=== PATIENT | female | born 2005 | race Caucasian/White ===

== ENCOUNTER 2023-07-31 16:35 | Emergency (ER) | payer OTHER, SELFPAY ==
--- NOTE | ~2023-07-31 | XR_ITS ---
EXAM: XR wrist RT min 3V DATE: 07/31/2023 16:56 HISTORY: injury . COMPARISON: None available. FINDINGS: Normal mineralization. No fracture or dislocation. No lytic or blastic lesion. Joint space s are maintained. No erosion or periosteal change. Soft tissues within normal limits. IMPRESSION: No acute osseous finding in the right wrist. Reviewed, dictated and finalized at location K.
--- NOTE | 2023-07-31 16:48 | ED.UPPEXIN ---
HPI - Extremity Injury (Upper) General Chief Complaint: Extremity Injury, Upper Stated Complaint: WC -Right Wrist injury History of Present Illness HPI narrative: PATIENT PRESENTS WITH RIGHT WRIST PAIN. PATIENT REPORTS SHE WAS AT WORK AND SLIPPED AND THINKS SHE CAUGHT HERSELF WITH HER WRIST, PATIENT UNSURE OF HOW SHE INJURED HER WRIST . NO DEFORMITY NO SWELLING NO BRUISING AND NO OPEN AREAS NOTED NORMAL ROM NO NUMBNESS AND NO TINGLING. PATIENT REPORTS INCIDENT OCCURRED 15 MINUTES PRIOR TO ARRIVAL TO URGENT CARE. PATIENT HAS NOT ICED , ELEVATED OR TAKEN ANYTHING FOR PAIN AND DISCOMFORT. Related Data Allergies Allergy/AdvReac Type Severity Reaction Status Date / Time codeine Allergy Unknown Verified 07/31/23 16:49 morphine Allergy Unknown Verified 07/31/23 16:49 Review of Systems Review of Systems: CONSTITUTIONAL: DENIES FEVER, CHILLS, OR SWEATS. EYES: DENIES VISUAL CHANGES, REDNESS, OR DISCHARGE. ENT: DENIES RHINORRHEA, CONGESTION, SORE THROAT, OR OTALGIA. CARDIOVASCULAR: DENIES CHEST PAIN, PALPITATIONS, OR EDEMA. RESPIRATORY: DENIES COUGH OR DYSPNEA. GASTROINTESTINAL: DENIES ABDOMINAL PAIN, NAUSEA, VOMITING, OR DIARRHEA. GENITOURINARY: DENIES DYSURIA OR HEMATURIA. SKIN: DENIES RASH OR ITCHING. MUSCULOSKELETAL: DENIES BACK PAIN, JOINT PAIN, OR MYALGIA. NEUROLOGIC: DENIES HEADACHE, NUMBNESS, OR WEAKNESS. PSYCHIATRIC: DENIES ANXIETY OR DEPRESSION. PMFSH Comments AT TIME OF SIGNATURE, AGREE WITH NURSING PAST MEDICAL, SURGICAL, SOCIAL AND FAMILY HISTORY. THERE IS NO RELEVANT FAMILY HISTORY PERTINENT TO THE PRESENTING COMPLAINT Exam Narrative: GENERAL: WELL-APPEARING, WELL-NOURISHED, AND IN NO ACUTE DISTRESS. HEAD: NORMOCEPHALIC, ATRAUMATIC. EYES: PERRLA AND EOMI. ENT: NARES CLEAR, NO RHINORRHEA OR EPISTAXIS. MUCOUS MEMBRANES MOIST. NECK: SUPPLE. CHEST: CLEAR TO AUSCULTATION. NO RESPIRATORY DISTRESS. HEART: REGULAR RATE AND RHYTHM. NO MURMUR HEARD. NORMAL PERIPHERAL PULSES. ABDOMEN: SOFT, NONTENDER, NONDISTENDED, NORMAL ACTIVE BOWEL SOUNDS. EXTREMITIES: NORMAL RANGE OF MOTION. NO EDEMA. HAND EXAM - Skin intact, no laceration, no swelling, no erythema, normal digit cascade with flexion of fingers, median nerve, ulnar nerve, radial nerve is intact. Normal sensation of each side of each finger, can perform `ok? sign, `cross over finger test of index and middle fingers? and `thumbs up? sign, normal thumb opposition, no scissoring. good capillary refill and radial pulse. normal flexion and extension of fingers and wrist. normal supination at wrist. Normal forearm and elbow exam. SKIN: WARM, DRY, NO RASH. NEURO: NO FOCAL DEFICITS. ALERT AND ORIENTED X3. ЮЛИЯ COMA SCALE EYE OPENING: SPONTANEOUS 4 ЮЛИЯ COMA SCALE MOTOR: OBEYS COMMANDS 6 ЮЛИЯ COMA SCALE VERBAL: ORIENTED 5 ЮЛИЯ COMA SCALE TOTAL 15 Course Course Emergency Course: DISCUSSED WITH PATIENT, X-RAY FINDINGS AND THAT X-RAYS WERE NEGATIVE FOR FRACTURE OR DISLOCATIONS. X-RAYS CANNOT RULE OUT TENDON, LIGAMENT, OR SOFT TISSUE STRUCTURE INJURIES AND IF SYMPTOMS PERSIST OR WORSEN, FURTHER EVALUATION MAY BE WARRANTED FOR POTENTIAL IMAGING. ADVISED REST, ICE, COMPRESSION, AND ELEVATION. IF PRESCRIBED ANY MEDICATIONS, TAKE DIRECTED. IF PRESCRIBED MUSCLE RELAXERS, DO NOT DRINK ALCOHOL, DRIVE, OR OPERATE ANY HEAVY MACHINERY WHILE TAKING. INSTRUCTED ON WHEN TO F/U WITH PCP AND CRITICAL RED FLAGS S/S DISCUSSED TO WHEN TO RETURN TO THE [facility] OR GO TO THE EMERGENCY DEPARTMENT. PATIENT/FAMILY UNDERSTAND IMPORTANCE OF CLOSE OBSERVATION AND RETURNING OR GOING TO THE EMERGENCY ROOM IF ANY WORSENING CONDITION. . Level of Care: Express Care Visit MDM - Extremity Injury (Upper) Imaging Data Radiologist's impression: Normal mineralization. No fracture or dislocation. No lytic or blastic lesion. Joint spaces are maintained. No erosion or periosteal change. Soft tissues within normal limits. IMPRESSION: No acute osseous finding in the right wrist. Discharg
[2023-07-31 16:50] VITALS: BP 122/69; PULSE 87; RESP 16; TEMP 36.9; O2SAT 98
== END 2023-07-31 17:15 | disposition home or self-care (01) ==
PROVIDERS: Emergency Provider Nurse Practitioner Family; PCP Internal Medicine
DX: S63.501A Unspecified sprain of right wrist, initial encounter (principal); S66.911A Strain of unspecified muscle, fascia and tendon at wrist and hand level, right hand, initial encounter; W01.0XXA Fall on same level from slipping, tripping and stumbling without subsequent striking against object, initial encounter; Y99.0 Civilian activity done for income or pay
CPT/HCPCS: 73110; 99213; G0463

== ENCOUNTER 2023-08-18 12:51 | Outpatient (CLI) | payer OTHER, SELFPAY ==
[2023-08-18 13:26] LABS: Basophils Absolute Auto 0.1 K/mm3 (0.0-0.1); Basophils Percent Auto 1.2 % (0.2-1.2); Eosinophils Percent Auto 0.6 % (0-4.4); Hematocrit 41.5 % (37.0-47.0); Hemoglobin 13.7 g/dL (12.0-15.0); Lymphocytes Absolute Auto 1.44 K/mm3 (0.9-3.2); Lymphocytes Percent Auto 28.5 % (18.3-44.2); Mean Corpuscular Hemoglobin 32.4 pg (26-34); Mean Corpuscular Volume 98.1 fl (80-100); Mean Platelet Volume 9.8 fl (7.4-10.4); Monocytes Absolute Auto 0.5 K/mm3 (0.1-0.6); Monocytes Percent Auto 10.7 % (2.6-8.5); Platelet Count Result 249 k/mm3 (150-375); Red Blood Count 4.23 M/mm3 (4.2-5.4); Red Cell Distribution Width 12.4 % (11.5-14.5); White Blood Count 5.1 K/mm3 (4.5-10.0)
[2023-08-18 13:48] LABS: Anion Gap 6 mmol/L (4-12); Blood Urea Nitrogen 12 mg/dL (7-17); Calcium 9.3 mg/dL (8.4-10.2); Carbon Dioxide 27 mmol/L (22-30); Chloride 106 mmol/L (98-107); Estimated Glomerular Filt Rate > 60; Glucose 60 mg/dL (65-110); Magnesium 1.8 mg/dL (1.6-2.3); Potassium 4.2 mmol/L (3.4-5.0); Sodium 139 mmol/L (137-145)
[2023-08-18 13:50] LABS: Troponin I < 0.012 ng/mL (0.000-0.034)
[2023-08-18 13:56] LABS: D Dimer < 0.27 ug/mL (<0.48)
[2023-08-18 14:09] LABS: Thyroid Stimulating Hormone 0.763 uIU/mL (0.465-4.680)
== END 2023-08-18 12:52 | disposition home or self-care (01) ==
LOC: ANHLAB 12:55
PROVIDERS: PCP Internal Medicine; Visit Provider Internal Medicine
DX: R07.9 Chest pain, unspecified (principal)
CPT/HCPCS: 36415; 80048; 83735; 84443; 84484; 85025; 85380

== ENCOUNTER 2023-09-30 09:07 | Outpatient (CLI) | payer OTHER, SELFPAY ==
[2023-09-30 10:10] LABS: CRP < 0.5 mg/dL (<1.0)
[2023-09-30 10:21] LABS: Rheumatoid Factor < 12.0 IU/ML (<12)
[2023-09-30 10:38] LABS: Free T4 Free Thyroxine 0.99 ng/mL (0.78-2.19)
[2023-09-30 10:40] LABS: Cortisol Random 9.33 ug/dL
[2023-09-30 11:12] LABS: Erythrocyte Sedimentation Rate 17 mm/hr (0-20)
[2023-10-03 10:58] LABS: ANA Pattern Nuclear, Homogeneous; Anti Nuclear Antibody Pattern Nuclear, Speckled
[2023-10-03 13:03] LABS: Thyroid Peroxidase Antibodies <1 IU/mL (<9)
[2023-10-07 13:09] LABS: Adrenocorticotropic Hormone 7 pg/mL (6-50)
[2023-10-08 01:54] LABS: Triiodothyronine T3 Free 3.4 pg/mL (3.0-4.7)
[2023-10-10 09:15] LABS: Chromogranin A 90 ng/mL
== END 2023-09-30 09:08 | disposition home or self-care (01) ==
LOC: ANHLAB 09:09
PROVIDERS: PCP Internal Medicine; Visit Provider Internal Medicine Endocrinology, Diabetes & Metabolism
DX: E16.2 Hypoglycemia, unspecified (principal); E34.9 Endocrine disorder, unspecified; H04.129 Dry eye syndrome of unspecified lacrimal gland; R94.7 Abnormal results of other endocrine function studies
CPT/HCPCS: 36415; 82024; 82533; 82653; 84439; 84443; 84481; 85652; 86038; 86039; 86140; 86316; 86376; 86430

== ENCOUNTER 2023-10-01 09:31 | Outpatient (NON) | payer OTHER, SELFPAY ==
[2023-10-08 21:49] LABS: Pancreatic Elastase, Stool 443 mcg/g
== END 2023-10-01 09:32 | disposition home or self-care (01) ==
PROVIDERS: PCP Internal Medicine; Visit Provider Internal Medicine Endocrinology, Diabetes & Metabolism
DX: E16.2 Hypoglycemia, unspecified (principal); E34.9 Endocrine disorder, unspecified; H04.129 Dry eye syndrome of unspecified lacrimal gland; R94.7 Abnormal results of other endocrine function studies
CPT/HCPCS: 82653

== ENCOUNTER 2023-10-03 15:00 | Outpatient (CLI) | payer OTHER, SELFPAY ==
--- NOTE | ~2023-10-03 | MR_ITS ---
EXAMINATION: MR brain/brain stem wo/w con DATE: 10/03/2023 15:45 INDICATION: Other signs and symptoms involving general sensation. Chronic generalized headaches and s eizures. TECHNIQUE: Magnetic resonance imaging (MRI) of the brain and brainstem was performed without and with 9 mL Multihance intravenous contrast. Sequences included sagittal and axial T1-weighted SE, axial di ffusion-weighted FS SE, axial T2*-weighted GRE, axial T2-weighted FLAIR Propeller, axial T2-weighted Propeller, coronal T2-weighted FLAIR, and coronal T1-weighted 3D FSPGR. Postcontrast axial, sagittal and coronal T1-weighted SE was obtained. Apparent diffusion coefficient (ADC) maps were created. . COMPARISON: None. FINDINGS: There are no areas of restricted diffusion to suggest acute infarction. No intracranial hemorrhage or abnormal intracranial mass lesion. There are no intraparenchymal signal abnormalities seen on the ot her pulse sequences. Symmetric normal appearing hippocampi. No merida matter heterotopias or other neur onal migrational abnormalities. The ventricles are symmetric and normal in size. There are no abnorma l extra-axial fluid collections. Flow voids are seen in the cerebral arteries on the T2-weighted sequ ences consistent with their expected patency. Visualized orbits and soft tissues are unremarkable. Th ere are no areas of abnormal enhancement on the post contrast images. IMPRESSION: 1. Normal brain MR Reviewed, dictated and finalized at location A. IMPRESSION: 1. Normal brain MR
== END 2023-10-03 15:01 ==
DX: R44.8 Other symptoms and signs involving general sensations and perceptions (principal)
CPT/HCPCS: 70553; A9577

== ENCOUNTER 2024-04-12 06:34 | Outpatient (CLI) | payer OTHER, SELFPAY ==
--- OUTSIDE RECORDS SUMMARY | 2024-04-12 06:37 | XMS_ITS | Referral Summary ---
Author Organization [facility] Address [address] [place] [address] Care Team Providers Care Burlap Worker Name Role Phone Odilia Cha MD Unavailable [phone] Keila Holland MD Primary Care Provider [phone] Anabella Pfeiffer OD Unavailable Encounters Date Type Department Care Team Description 01/26/2024 6:30 PM PLANNING ASSOCIATE Office Visit [facility] Convenient Care at [address] [address] Heidi Acosta NP Acute nasopharyngitis (Primary Dx); Acute suppurative otitis media of right ear without spontaneous rupture of tympanic membrane, recurrence not specified from Last 3 Months Allergies Active Allergy Reactions Criticality Noted Date Comments Alcohol Anaphylaxis High 01/26/2024 Codeine Unknown,Other (See comments) High 05/24/2013 Mom and sib have had severe cardiac reaction - patient has never been exposed Cardiac affects Dairy - All Forms And Ingredients Anaphylaxis High 01/26/2024 Morphine Unknown 05/08/2014 Mom and sib have had severe cardiac reaction - patient never exposed Pork/Porcine Containing Products Hives Medium 01/26/2024 Shellfish Containing Products Chest tightness,Dizziness Medium 01/26/2024 Medications naproxen (NAPROSYN) 500 mg tablet 1 tablet (500 mg total) 2 (two) times a day as needed 0 9 Active B2-magnesium cit,oxid-feverf ew 200-180-50 mg tablet Take by mouth daily Active glucagon 1 mg injection INJECT 1 MG IN THE MUSCLE ONE TIME FOR SEVERE HYPOGLYCEMIA THEN CALL 911 4 Active Gvoke PFS 1-Pack Syringe 1 mg/0.2 mL syringe 4 Active ondansetron (ZOFRAN) 4 mg tablet Take by mouth every 8 (eight) hours as needed 4 Active FreeStyle Caitie 3 Sensor device USE DIRECTED FOR HYPOGLYCEMIA [address] (PROTONIX) 40 mg EC tablet Take 1 tablet (40 mg total) by mouth daily 4 Active Active Problems Problem Noted Date Diagnosed Date Post concussive syndrome 09/24/2022 Overview (09/24/2022): Hx of 2 concussions over the past year (summer), worsening of migraines and seizures after concussions. Vision blurriness, darkening, eye pain all worsened after concussions. Symptoms improved for a few months with again worsening of visual symptoms Apr-June. Assessment & Plan (09/24/2022 11:55 AM CDT): Exam very reassuring, no structural/functional concerns demonstrated on exam or imaging -Migraine precautions -F41 glasses information -Can consider repeat MRI -Declined speaking to a sleep specialist -Follow up in 4-6 mo Myalgia 10/11/2018 Social History Tobacco Use Types Packs/Day Years Used Date Smoking Tobacco: Never Smokeless Tobacco: Never Tobacco Cessation:Counseling Given: Not Answered Comments Unknown Sex and Gender Information Value Date Recorded Sex Assigned at Not on file Legal Sex Female 1:56 PM CDT Gender Identity Not on file Sexual Orientation Not on file Last Filed Vital Signs Vital Sign Reading Time Taken Comments Blood Pressure 118/82 01/26/2024 6:37 PM PLANNING ASSOCIATE Pulse 84 01/26/2024 7:09 PM PLANNING ASSOCIATE Temperature 36.6 ??C (97.9 ??F) 01/26/2024 6:37 PM CS T Respiratory Rate 20 01/26/2024 6:37 PM PLANNING ASSOCIATE Oxygen Saturation 99% 01/26/2024 7:09 PM PLANNING ASSOCIATE Inhaled Oxygen Concentration - - Weight 45.5 kg (100 lb 6.4 oz) 01/26/2024 6:37 P M PLANNING ASSOCIATE Height 167.6 cm (5' 5.98 ) 01/26/2024 6:37 PM CS T Body Mass Index 16.21 01/26/2024 6:37 PM PLANNING ASSOCIATE Plan of Treatment Not on file Procedures Procedure Name Priority Date/Time Associated Diagnosis Comments POC INFLUENZA A/B, COVID-19 ANTIGEN Routine 01/26/2024 7:09 PM PLANNING ASSOCIATE Acute nasopharyngitis from Last 3 Months Results * POC Influenza A/B, COVID-19 antigen (01/26/2024 7:09 PM PLANNING ASSOCIATE) Influenza A Ag, POC Negative Negative [facility] Influenza B Ag, POC Negative Negative [facility] COVID-19 Ag POC Presumptive Negative Presumptive Negative, Invalid [facility] Nasal 01/26/2024 7:09 PM PLANNING ASSOCIATE us Heidi Acosta NP POINT OF CARE TEST ORDERABLES F inal Result [facility] [address] [place] [address], [facility] from Last 3 Months Insurance [facility] Care Teams Burlap Worker Relationship Specialty Start Date End Date Keila Holland MD [address] [place] [address] PCP - General Internal Medicine 09/24/22 Odilia Cha MD Pediatrics 05/15/19 Anabella Pfeiffer OD [address] [place] [address] Referring Physician Optometry 09/24/22
--- OUTSIDE RECORDS SUMMARY | 2024-04-12 06:37 | XMS_ITS ---
Author Organization [facility] Address [address] [place] [address] Care Team Providers Care Innovations Paraprofessional Name Role Phone Leah Croft Primary Care Provider REASON FOR VISIT Genetics appointment Encounters Encounter Location Date Provider Diagnosis [facility] - Leah Croft [address] [place] [address] 03/29/2024 Leah Croft Plan Of Treatment Next Appt Details Provider Name:Leahsharifa Croft, 03:30:00 PM, [address], [place], [address], Progress Notes * Guillermina TYLERDOB:[birth year] (18 yo F)Acc No.[id number]:03/29/2024 Patient:?Guillermina TYLER :2005???Age:18 Y???Sex:Female Address:[address], [address], [place] [address] * true * Date:? Generated for Carl hoffman/Wilbert/eTransmitting on:?04/12/2024 06:37 AM JUKEBOX COIN COLLECTOR
--- OUTSIDE RECORDS SUMMARY | 2024-04-12 06:37 | XMS_ITS | Clinical Summary ---
Author Organization [facility] Address [address] [place] [address] Phone Care Team Providers Care Vb Net Programmer Name Role Phone Keila Holland MD Primary Care Provider [phone] Jenniffer Christian APRN, CIGAR PACKING EXAMINER Unavailable Allergies Active Allergy Reactions Criticality Noted Date Comments Codeine Anaphylaxis,Other (see Comments),Unknown High 05/24/2013 Sister had cardiac arrest Mom and sib have had severe cardiac reaction - patient has never been exposed Cardiac affects Lactase-Lactobacillus Unknown 10/27/2023 Morphine Anaphylaxis,Other (see Comments),Unknown 05/08/2014 Sister had cardiac arrest Mom and sib have had severe cardiac reaction - patient never exposed Pork-Derived Products Unknown 10/27/2023 Medications acarbose (PRECOSE) 50 MG Tablet Take 50 mg by mouth 3 times daily. 4 Active Continuous Glucose Sensor (FreeStyle Caitie 3 Sensor) [facility] FOR HYPOGLYCEMIA 4 Active FEVERFEW PO Take by mouth daily. Active Gvoke PFS 1 MG/0.2ML Solution Prefilled Syringe 4 Active ondansetron (Zofran) 4 MG Tablet Take 4 mg by mouth every 8 hours as needed. Active simethicone (Gas-X Extra Strength) 125 MG Chewable Tablet Take 80 mg by mouth every 6 hours as needed. Active Active Problems No known active problems Immunizations Immunization Administration Dates Next Due TDAP Vaccine 12/02/2019 Social History Tobacco Use Types Packs/Day Years Used Date Smoking Tobacco: Never Smokeless Tobacco: Never Tobacco Cessation:Counseling Given: Not Answered Alcohol Use Standard Drinks/Week Comments Never 0 (1 standard drink = 0.6 oz pur e alcohol) AUDIT-C Answer Date Recorded Frequency of Alcohol Consumption Never 06/03/2018 Average Number of Drinks Not on file 019 Frequency of Binge Drinking Not on file 05/13 Comments No Sex and Gender Information Value Date Recorded Sex Assigned at Not on file Legal Sex Female 10:13 PM CDT Gender Identity Not on file Sexual Orientation Not on file Last Filed Vital Signs Vital Sign Reading Time Taken Comments Blood Pressure 100/80 10/27/2023 8:48 AM CDT Pulse 84 10/27/2023 8:48 AM CDT Temperature 36.3 ??C (97.3 ??F) 10/27/2023 8:48 AM CD T Respiratory Rate 14 10/27/2023 8:48 AM CDT Oxygen Saturation 99% 10/27/2023 8:48 AM CDT Inhaled Oxygen Concentration - - Weight 45.2 kg (99 lb 11.2 oz) 10/27/2023 8:48 A M CDT Height 166.4 cm (5' 5.5 ) 10/27/2023 8:48 AM CDT Body Mass Index 16.34 10/27/2023 8:48 AM CDT Plan of Treatment Health Maintenance Due Date Last Done Comments Hepatitis C Virus (HCV) Screening 2003 Human Papillomavirus (HPV) Immunization (1 - 3-dose series) 2018 Meningococcal B Immunization (1 of 2 - Standard) 2019 Influenza Immunization (#1) 2023 SARS-COV-2 Immunization ( season) 2023 03/09/2023, 03/03/2021, 07/01/2020, Additional history exists Td Immunization Every 10 Years (Adults With 1 Tdap) 12/01/2029 12/02/2019, 06/08/2016 Respiratory Syncytial Virus (RSV) Immunization (Adult) (1 - 1-dose 75+ series) 2078 Hepatitis B Immunization Completed 011, 09/29/2010, 07/28/2009 Measles Mumps Rubella (MMR) Immunization Discontinued 08/14/2013, 05/01/2012, 01/20/2012 DTaP/Tdap/Td Immunization Discontinued 2019, 06/08/2016, 06/02/2009, Additional history exists Varicella Immunization Discontinued 03/21/2020, 2017 Meningococcal Immunization (ACWY) Completed 04/25/2020 Hepatitis A Immunization Discontinued 03/21/2023 Pneumococcal Immunization Combined Aged Out No longer eligible based on patient's age to complete this topic Rotavirus Immunization Aged Out No lo nger eligible based on patient's age to complete this topic Insurance NA SOI AENA SOI Care Teams Vb Net Programmer Relationship Specialty Start Date End Date Keila Holalnd MD [address] [place] [address] PCP - General Internal Medicine 09/27/23 Jenniffer Christian APRN, CIGAR PACKING EXAMINER [address] [place] [address] Nurse Practitioner Advanced Practice Nurse 10/27/23
--- OUTSIDE RECORDS SUMMARY | 2024-04-12 06:37 | XMS_ITS | Clinical Summary ---
Author Organization [facility] Address [address] [place] [address] Care Team Providers Care Correspondence Review Clerk Name Role Phone Odilia Cha MD Unavailable [phone] Keila Holland MD Primary Care Provider Anabella Pfeiffer OD Unavailable Allergies Active Allergy Reactions Criticality Noted [...] of 2 concussions over the past year (summer of ), worsening of migraines and seizures after concussions. [...] -Follow up in 4-6 mo Myalgia 10/11/2018 Encounters Date Type Department Care Team Description 01/26/2024 6:30 PM SUPERINTENDENT STATIONS Office Visit [facility] Medical Group Convenient Care at [address] [address] Heidi Acosta NP Acute nasopharyngitis (Primary Dx); Acute suppurative otitis media of right ear without spontaneous rupture of tympanic membrane, recurrence not specified from Last 3 Months Surgical History Surgery Date Site/Laterality Comments NO PAST SURGERIES Medical History Medical History Date Comments Migraines Pseudoseizures Family History Medical History Relation Name Comments Henoch-Schonlein purpura Brother Migraines Father Rheum arthritis Maternal Grandmother Relation Name Status Comments Brother Father Father's Brother MS Other Father's Sister MS Other Maternal Grandmother Social History Tobacco Use Types Packs/Day Years Used Date Smoking Tobacco: Never Smokeless Tobacco: Never Tobacco Cessation:Counseling Given: Not Answered Comments Unknown Sex and Gender Information Value Date Recorded Sex Assigned at Not on file Legal Sex Female 1:56 PM CDT Gender Identity Not on file Sexual Orientation Not on file Obstetrics History Last Filed Vital Signs Vital Sign Reading Time Taken Comments Blood Pressure 118/82 01/26/2024 6:37 PM SUPERINTENDENT STATIONS Pulse 84 01/26/2024 7:09 PM SUPERINTENDENT STATIONS Temperature 36.6 ??C (97.9 ??F) 01/26/2024 6:37 PM CS T Respiratory Rate 20 01/26/2024 6:37 PM SUPERINTENDENT STATIONS Oxygen Saturation 99% 01/26/2024 7:09 PM SUPERINTENDENT STATIONS Inhaled Oxygen Concentration - - Weight 45.5 kg (100 lb 6.4 oz) 01/26/2024 6:37 P M SUPERINTENDENT STATIONS Height 167.6 cm (5' 5.98 ) 01/26/2024 6:37 PM CS T Body Mass Index 16.21 01/26/2024 6:37 PM SUPERINTENDENT STATIONS Plan of Treatment Health Maintenance Due Date Last Done Comments Depression Screening 2003 Hepatitis C Screening 2003 HPV Vaccines (1 - 3-dose series) 2018 Meningococcal B Vaccine (1 of 2 - Patient Seeks Protection) 2019 10/16/2014 Regular Well Visit/Exam 18-64 2021 Covid-19 Vaccine ( - season) 2023 03/03/2021, 07/01/2020, 06/09/2020 Influenza Vaccine (#1) 2023 DTaP/Tdap/Td Vaccine (7 - Td or Tdap) 12/01/2029 12/02/2019, 06/08/2016, 06/02/2009, Additional history exists Varicella Vaccines Completed 03/21/2020, 06/15/2017 Meningococcal Vaccine Completed 04/25/2020 Pneumococcal vaccine <65 Aged Out No longer eligible based on patient's age to complete this topic Procedures Procedure Name Priority Date/Time Associated Diagnosis Comments POC INFLUENZA A/B, COVID-19 ANTIGEN Routine 01/26/2024 7:09 PM SUPERINTENDENT STATIONS Acute nasopharyngitis from Last 3 Months Results * POC Influenza A/B, COVID-19 antigen (01/26/2024 7:09 PM SUPERINTENDENT STATIONS) Influenza A Ag, POC Negative Negative [facility] Influenza B Ag, POC Negative Negative [facility] COVID-19 Ag POC Presumptive Negative Presumptive Negative, Invalid [facility] Nasal 01/26/2024 7:09 PM SUPERINTENDENT STATIONS Heidi Acosta NP POINT OF CARE TEST ORDERABLES F inal Result [facility] [address] [place] [address], [facility] from Last 3 Months Insurance [facility] [facility] Care Teams Correspondence Review Clerk Relationship Specialty Start Date End Date Keila Holland MD [address] [facility] [place] [address] PCP - General Internal Medicine 09/24/22 Odilia Cha MD Pediatrics 05/15/19 Anabella Pfeiffer OD [address] [place] [address] Referring Physician Optometry 09/24/22
--- OUTSIDE RECORDS SUMMARY | 2024-04-12 06:37 | XMS_ITS | Encounter Summary ---
Author Organization [facility] Address [address] [place] [address] Care Team Providers Care Entry Level Electrical Engineer Name Role Phone Provider, No Pcp Primary Care Provider Unavailab Jefry Cantor MD Unavailable Encounter Details Date Type Department Care Team (Latest Contact Info) Description 04/11/2024 9:09 AM LACING CUTTER - 04/11/2024 11:59 PM LACING CUTTER Hospital Encounter [facility] MATERNAL/ EVALUATION UNIT [address] [place] [address] Kg Villa MD [address] [facility] [address] [place] [address] Discharge Disposition: Home or Self Care Social History Tobacco Use Types Packs/Day Years Used Date Smoking Tobacco: Never Smokeless Tobacco: Never Alcohol Use Standard Drinks/Week Comments Not Currently 0 (1 standard drink = 0.6 oz pur e alcohol) AUDIT-C Answer Date Recorded Q1: How often do you have a drink containing alcohol? Never 03/28/2024 Q2: How many drinks containi ng alcohol do you have on a typical day when you are drinking? Patient does not drink Q3: How often do you have si x or more drinks on one occasion? Never 03/28/2024 Overall Financial Resource Strain (CARDIA) Answe r Date Recorded How hard is it for you to pa y for the very basics like food, housing, medical care, and heating? Not hard at all 03/28/2024 [facility] [place] of Occupat ional Health - Occupational Stress Questionnaire Answer Date Recorded Do you feel stress - tense, restless, nervous, or anxious, or unable to sleep at night because your mind is troubled all the time - these days? Not at all 03/28/2024 Hunger Vital Sign Answer Date Recorded Within the past 12 months, y ou worried that your food would run out before you got the money to buy more. Never true 03/28/19 25 Within the past 12 months, t he food you bought just didn't last and you didn't have money to get more. Never true 03/28/2024 PRAPARE - Transportation Answer Date Re corded In the past 12 months, has l ack of transportation kept you from medical appointments or from getting medications? No 03/14 In the past 12 months, has l ack of transportation kept you from meetings, work, or from getting things needed for daily living? No 03/28/2024 Housing Stability Vital Sign Answer Tuan e Recorded In the last 12 months, was t here a time when you were not able to pay the mortgage or rent on time? No 03/28/2024 In the past 12 months, how m any times have you moved where you were living? 1 03/28/2024 At any time in the past 12 m [facility], were you homeless or living in a intermediate (including now)? No 03/28/2024 Sex and Gender Information Value Date Recorded Sex Assigned at Not on file Gender Identity Not on file Sexual Orientation Not on file documented as of this encounter Last Filed Vital Signs Vital Sign Reading Time Taken Comments Blood Pressure 116/81 04/11/2024 9:14 AM LACING CUTTER Pulse 84 04/11/2024 9:14 AM LACING CUTTER Temperature - - Respiratory Rate 16 04/11/2024 9:14 AM LACING CUTTER Oxygen Saturation - - Inhaled Oxygen Concentration - - Weight 47.4 kg (104 lb 6.4 oz) 04/11/2024 9:14 A M LACING CUTTER Height - - Body Mass Index 17.11 03/28/2024 7:45 AM LACING CUTTER documented in this encounter Functional Status Functional Status Response Date of Assess ment Is person deaf or have serious hearing difficult y? No 03/28/2024 Is person blind or have serious difficulty seein g? No 03/28/2024 Does person have serious dif ficulty walking/climbing stairs? No 03/28/2024 Does person have difficulty dressing/bathing? No 03/28/2024 Does person have difficulty doing errands alone? No 03/28/2024 Cognitive Status Response Date of Assessm ent Does person have difficulty concentrating/remembering/making decisions? No 03/28/2024 documented as of this encounter Medications at Time of Discharge Medication Sig Dispensed Refills Start Date End Date acetaminophen (Tylenol) 500 MG tablet Take 1 (one) tablet by mouth every 4 hours as needed for Fever or Pain Maximum allowable Acetaminophen amount = 4 Grams (4000 mg) / 24 hours. 30 tablet 03/28/2024 diphenhydrAMINE (Benadryl) 50 MG capsule Take 1 (one) capsule by mouth every 4 hours as needed for Itching Take 1 hr prior to the scan 1 capsule 11/07/2023 ibuprofen (Motrin) 600 MG tablet Take 1 (one) tablet by mouth every 6 hours as needed for Pain 30 tablet 03/28/2024 Nutritional Supplement LIQD Take 1 container by mouth 2 times daily Vegan or Milk Free Supplement w/o artifical sweeteners Examples: Gela Alexander (1.4 Jude - Standard), DANA Ambrocio, Jethro, Vinicius 99 11/23/2023 octreotide (SandoSTATIN) 50 MCG/ML injection INJECT 50MCG (1ML) SUBCUTANEOUSLY TWICE DAILY BEFORE MEALS 11/15/2023 oxyCODONE, immediate release, (Roxicodone) 5 MG tabletIndications:Pos t-operative state Take 1 (one) tablet by mouth every 6 hours as needed for Pain 12 tablet 03/28/2024 polyethylene glycol 3350 (Miralax) 17 GM/SCOOP powder Take 17 (seventeen) g by mouth once daily 238 g 03/28/2024 documented as of this encounter Plan of Treatment Upcoming Encounters Date Type Department Care Team (Latest Contact Info) Description 04/23/2024 8:00 AM LACING CUTTER Appointment [facility] Pediatrics - Genetics [address] [place] [address] Aj Keen MD [address] [place] [address] 05/30/2024 12:45 PM CDT Hospital Encounter [facility] ENDOSCOPY [address] [place] [phone] Sydnee Collins MD [address] [place] [phone] Surgery General 05/30/2024 12:45 PM CDT - 05/30/2024 1:15 PM CDT Surgery [facility] ENDOSCOPY [address] [place] [phone] Sydnee Collins MD [facility] [place] [address] EGD w/ azalia 10/12/2024 1:00 PM CDT Appointment [facility] MATERNAL/ EVALUATION UNIT [address] [place] [address] Kg Villa MD [address] [facility] [address] [place] [address] Scheduled Procedures Name Priority Associated Diagnoses Date/Ti me ESOPHAGOGASTRODUODENOSCOPY ( EGD) DIAGNOSTIC Erosive gastritis 05/30/2024 12:45 PM CDT documented as of this encounter Visit Diagnoses Not on filedocumented in this encounter Care Teams Entry Level Electrical Engineer Relationship Specialty Start Date End Date Provider, No Pcp PCP - General 03/27/24 Jefry Martinez MD [address] [place] [address] 03/27/24 documented as of this encounter
--- OUTSIDE RECORDS SUMMARY | 2024-04-12 06:37 | XMS_ITS | Encounter Summary ---
Author Organization [facility] Address [address] [facility] [place] [address] Care Team Providers Care Woods Rider Name Role Phone Provider, No Pcp Primary Care Provider Unavailab Jefry Cantor MD Unavailable Encounter Details Date Type Department Care Team (Latest Contact Info) Description 04/11/2024 Travel Social History Tobacco Use Types Packs/Day Years [...] and heating? Not hard at all 03/28/2024 [facility] [place] of Occupat ional Health - Occupational Stress [...] any time in the past 12 m [facility], were you homeless or living in a correction (including now)? No 03/28/2024 Sex and Gender Information Value Date Recorded Sex Assigned at Not on file Gender Identity Not on file Sexual Orientation Not on file documented as of this encounter Functional Status Functional Status Response [...] No 03/28/2024 documented as of this encounter Plan of Treatment Upcoming Encounters Date Type Department Care Team (Latest Contact Info) Description 04/23/2024 8:00 AM SKIP HOIST ENGINEER Appointment [facility] Pediatrics - Genetics [address] [place] [address] Aj Keen MD [address] [place] [address] 05/30/2024 12:45 PM CDT Hospital Encounter [facility] ENDOSCOPY [address] [place] [phone] Sydnee Collins MD [address] [place] [address] Surgery General 05/30/2024 12:45 PM CDT - 05/30/2024 1:15 PM CDT Surgery [facility] ENDOSCOPY [address] [place] [phone] Sydnee Collins MD [address] [place] [phone] EGD w/ azalia 10/12/2024 1:00 PM CDT Appointment [facility] MATERNAL/ EVALUATION UNIT [address] [facility] [address] [place] [address] Kg Villa MD [address] [facility] [address] [place] [address] Scheduled Procedures Name Priority Associated Diagnoses Date/Ti me ESOPHAGOGASTRODUODENOSCOPY ( EGD) DIAGNOSTIC Erosive gastritis 05/30/2024 12:45 PM CDT documented as of this encounter Visit Diagnoses Not on filedocumented in this encounter Care Teams Woods Rider Relationship Specialty Start Date End Date Provider, No Pcp PCP - General 03/27/24 Jefry Martinez MD [address] [place] [address] 03/27/24 documented as of this encounter
--- OUTSIDE RECORDS SUMMARY | 2024-04-12 06:38 | XMS_ITS | Encounter Summary ---
Author Organization [facility] Address [address] [facility] [place] [address] Care Team Providers Care Living Skills Advisor Name Role Phone Provider, No Pcp Primary Care Provider Unavailab Jefry Cantor MD Unavailable Encounter Details Date Type Department Care Team (Late st Contact Info) Description 03/28/2024 4:55 AM [facility] Hospital Encounter [facility] 5E ANTEPARTUM/MOTHER BABY [address] [place] [address] Zakia Gonzalez MD [address] [facility] [address] [place] [id number] Gynecology Social History Tobacco Use Types Packs/Day Years Used Date Smoking Tobacco: Never Smokeless Tobacco: Never Alcohol Use Standard Drinks/Week Comments Never 0 [...] and heating? Not hard at all 03/28/2024 [facility] [place] of Occupat ional Health - Occupational Stress [...] any time in the past 12 m [facility], were you homeless or living in a custodial (including now)? No 03/28/2024 Sex and Gender [...] (Latest Contact Info) Description 04/23/2024 8:00 AM MOBILE THERAPIST Appointment [facility] Pediatrics - Genetics [address] [place] [address] Aj Keen MD [address] [place] [address] 05/30/2024 12:45 PM CDT Hospital Encounter [facility] ENDOSCOPY [address] [place] [phone] Sydnee Collins MD [address] [place] [address] Surgery General 05/30/2024 12:45 PM CDT - 05/30/2024 1:15 PM CDT Surgery [facility] ENDOSCOPY [address] [place] [phone] Sydnee Collins MD [facility] [place] [phone] EGD w/ azalia 10/12/2024 1:00 PM CDT Appointment [facility] MATERNAL/ EVALUATION UNIT [address] [place] [address] Kg Villa MD [address] [place] [address] Scheduled Procedures Name Priority Associated Diagnoses Date/Ti me ESOPHAGOGASTRODUODENOSCOPY ( EGD) DIAGNOSTIC Erosive gastritis 05/30/2024 12:45 PM CDT documented as of this encounter Visit Diagnoses Diagnosis Cyst of ovary, unspecified laterality- Primary Cyst of ovary, unspecified laterality Erosive gastritis Other specified gastritis without mention of hemorrhage documented in this encounter Care Teams Living Skills Advisor Relationship Specialty Start Date End Date Provider, No Pcp PCP - General 03/27/24 Jefry Martinez MD [address] [place] [address] 03/27/24 documented as of this encounter
--- OUTSIDE RECORDS SUMMARY | 2024-04-12 06:38 | XMS_ITS ---
Author Organization [facility] Address [address] [place] [address] Care Team Providers Care Lithograph Printer Name Role Phone Lang Leah Primary Care Provider REASON FOR VISIT Medical records Encounters Encounter Location Date Provider Diagnosis [facility] - Leah Croft [address] [place] [address] 03/22/2024 Leah Croft Plan Of Treatment Next Appt Details Provider Name:Leah Croft, 03:30:00 PM, [address], [place], [address], Progress Notes * JAYSON SherijuaniDOB:[birth year] (18 yo F)Acc No.[id number]:03/22/2024 Patient:?Guillermina TYLER :2005???Age:18 Y???Sex:Female Address:[address], [address], [place] [address] * true * Date:? Generated for Carl hoffman/Wilbert/eTransmitting on:?04/12/2024 06:38 AM SOLAR INSTALLER
--- OUTSIDE RECORDS SUMMARY | 2024-04-12 06:38 | XMS_ITS | Referral Summary ---
Author Organization [facility] Address [address] [place] [address] Care Team Providers Care Development Officer Name Role Phone Provider, No Pcp Primary Care Provider Unavailab Jefry Cantor MD Unavailable Source Comments [facility],non-owned Affiliates and Associated Physician Practices is amultiple site organization consisting of ambulatory clinics and hospital sitesin [place], [place], [place] and [place]. This disclosure is being madepursuant to the Care Everywhere program and may not contain all information available regarding this patient. Last updated 17.[facility] Encounters Date Type Department Care Team Description 04/11/2024 Travel 04/11/2024 9:09 AM ENGINEERING PSYCHOLOGIST - 04/11/2024 11:59 PM ENGINEERING PSYCHOLOGIST Hospital Encounter [facility] MATERNAL/ EVALUATION UNIT [address] [place] [address] Kg Villa MD Discharge Disposition: Home or Self Care 03/30/2024 Telephone [facility] MATERNAL/ EVALUATION UNIT [address] [place] [address] Scarlett Batista Future Appointment 03/28/2024 7:40 AM ENGINEERING PSYCHOLOGIST - 03/29/2024 11:10 AM ENGINEERING PSYCHOLOGIST Hospital Encounter [facility]TE[facility]UM[facility]MOTHER [facility] [address] [place] [address] Ly Traore MD Discharge Disposition: Home or Self Care 03/28/2024 4:55 AM ENGINEERING PSYCHOLOGIST Hospital Encounter [facility]TEPARTUM/MOTHER [facility] [address] [place] [address] Zakia Gonzalez MD Gynecology 03/28/2024 2:21 PM ENGINEERING PSYCHOLOGIST Anesthesia Event [facility] PERIOPERATIVE [address] [place] [address] Mickey Kolb MD Gill, Nicholas William, MD 03/28/2024 2:00 PM ENGINEERING PSYCHOLOGIST - 03/28/2024 3:33 PM ENGINEERING PSYCHOLOGIST Surgery [facility] PERIOPERATIVE [address] [place] [address] Dory Perez MD LAPAROSCOPY CYSTECTOMY 03/28/2024 Travel 03/27/2024 3:09 PM ENGINEERING PSYCHOLOGIST - 03/28/2024 7:15 AM [facility] Emergency [facility] EMERGENCY DEPARTMENT [address] [place] [phone] Jonathan Bush MD Cash, Jennifer A, MD Abdominal pain, right lower quadrant; Adnexal cyst Discharge Disposition: Inpatient Hospital 03/27/2024 Travel 03/27/2024 - 03/27/2024 5:12 PM [facility] Emergency [facility] EMERGENCY DEPARTMENT [address] [place] [phone] Discharge Disposition: ED Dismiss - Never Arrived 03/27/2024 Travel 03/20/2024 Orders Only [facility] TXP DANIE CSM 3L [address] [place] [address] Ervin Herrera MD Glycogen storage disease, type VII (HCC) 02/19/2024 Travel 02/19/2024 5:07 PM ENGINEERING PSYCHOLOGIST - 02/19/2024 5:49 PM [facility] Emergency [facility] EMERGENCY DEPARTMENT [address] [place] [phone] Discharge Disposition: Left Against Medical Advice/Discontinued Care 02/15/2024 Telephone [facility] - Nephrology [address] [place] [address] [place] [address] Sydnee Vieyra MD Med Question 01/16/2024 Orders Only [facility] - GI [address] [place] [address] Sydnee Vieyra MD Erosive gastritis 01/12/2024 Travel 01/12/2024 7:55 AM CDT - 01/12/2024 9:00 AM CDT Surgery [facility] ENDOSCOPY [address] [place] [address] Sydnee Vieyra MD EUS +/- biopsy +/- fiducial placement 01/12/2024 8:01 AM CDT Anesthesia Event [facility] ENDOSCOPY [address] [place] [address] Benedict Cheek II, MD Staheli, Jonathan, DO 01/12/2024 7:00 AM CDT - 01/12/2024 10:28 AM CDT Hospital Encounter [facility] BELL OP [address] [place] [address] Sydnee Vieyra MD Surgery General Discharge Disposition: Home or Self Care 01/11/2024 Travel from Last 3 Months Allergies Active Allergy Reactions Criticality Noted Date Comments Alcohol Anaphylaxis High 11/07/2023 Lactase Urticaria Medium 11/07/2023 Lactase-Lactobacillus Unknown 10/27/2023 Codeine Cardiac Injury High 03/27/2024 Codeine Other High 05/24/2013 Cardiac affects Pork Derived Products Unknown 10/27/2023 Shellfish Allergy Wheezing Medium 11/07/2023 Has tolerated contrast in the past but experienced fatigue and GI distress Medications * Be aware that medications may not be up to date on this document. Alwaysverify current medications with the patient. Medication Sig Dispensed Refills Start Date End Date Status diphenhydrAMINE (Benadryl) 50 MG capsule Take 1 (one) capsule by mouth every 4 hours as needed for Itching Take 1 hr prior to the scan 1 capsule 11/07/2023 Active Additional Information Patient not taking.Reason: Other, Reported on 04/11/2024 Nutritional Supplement LIQD Take 1 container by mouth 2 times daily Vegan or Milk Free Supplement w/o artifical sweeteners Examples: Gela Alexander (1.4 Jude - Standard), DANA Ambrocio, Jethro, Vinicius 99 11/23/2023 Active octreotide (SandoSTATIN) 50 MCG/ML injection INJECT 50MCG (1ML) SUBCUTANEOUSLY TWICE DAILY BEFORE MEALS 11/15/2023 Active pantoprazole EC (Protonix) 40 MG tablet Take 1 (one) tablet by mouth once daily for 90 days 90 tablet 01/12/2024 Active oxyCODONE, immediate release, (Roxicodone) 5 MG tabletIndications :Post-operative state Take 1 (one) tablet by mouth every 6 hours as needed for Pain 12 tablet 03/28/2024 Active Additional Information Patient not taking.Reason: Provider adjusted, Reported on 04/11/2024 acetaminophen (Tylenol) 500 MG tablet Take 1 (one) tablet by mouth every 4 hours as needed for Fever or Pain Maximum allowable Acetaminophen amount = 4 Grams (4000 mg) / 24 hours. 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 Not hard at all 03/28/2024 [facility] Serafina of Occupat ional Health - Occupational Stress [...] any time in the past 12 m [facility], were you homeless or living in a fpc (including now)? No 03/28/2024 Sex and Gender Information Value Date Recorded Sex Assigned at Not on file Gender Identity Not on file Sexual Orientation Not on file Last Filed Vital Signs Vital Sign Reading Time Taken Comments Blood Pressure 116/81 04/11/2024 9:14 AM ENGINEERING PSYCHOLOGIST Pulse 84 04/11/2024 9:14 AM ENGINEERING PSYCHOLOGIST Temperature 36.9 ??C (98.5 ??F) 03/29/2024 7:54 AM CS T Respiratory Rate 16 04/11/2024 9:14 AM ENGINEERING PSYCHOLOGIST Oxygen Saturation 100% 03/29/2024 7:54 AM ENGINEERING PSYCHOLOGIST Inhaled Oxygen Concentration - - Weight 47.4 kg (104 lb 6.4 oz) 04/11/2024 9:14 A M ENGINEERING PSYCHOLOGIST Height 166.4 cm (5' 5.5 ) 03/28/2024 7:45 AM ENGINEERING PSYCHOLOGIST Body Mass Index 17.11 03/28/2024 7:45 AM ENGINEERING PSYCHOLOGIST Functional Status Functional Status Response Date of [...] person have difficulty concentrating/remembering/making decisions? No 03/28/2024 Plan of Treatment Upcoming Encounters Date Type Department Care Team (Latest Contact Info) Description 04/23/2024 8:00 AM ENGINEERING PSYCHOLOGIST Appointment [facility] Pediatrics - Genetics [address] [place] [address] Aj Keen MD [address] [place] [address] 05/30/2024 12:45 PM CDT Hospital Encounter [facility] ENDOSCOPY [address] [place] [address] Sydnee Vieyra MD [address] [place] [phone] Surgery General 05/30/2024 12:45 PM CDT - 05/30/2024 1:15 PM CDT Surgery [facility] ENDOSCOPY [address] [place] [address] Sydnee Vieyra MD [address] [place] [address] ALEA vieyra 10/12/2024 1:00 PM CDT Appointment [facility] MATERNAL/ EVALUATION UNIT [address] [facility] [place], [place] [phone] Kg Villa MD [address] [address] Scheduled Procedures Name Priority Associated Diagnoses Date/Ti ct ESOPHAGOGASTRODUODENOSCOPY ( EGD) DIAGNOSTIC Erosive gastritis 05/30/2024 12:45 PM CDT Procedures Procedure Name Priority Date/Time Associated Diagnosis Comments CARDIAC RHYTHM STRIP ORDER 03/30/2024 11:50 PM ENGINEERING PSYCHOLOGIST GLUCOSE - POINT OF CARE Routine 03/29/2024 8:41 AM ENGINEERING PSYCHOLOGIST GLUCOSE - POINT OF CARE Routine 03/29/2024 4:40 AM ENGINEERING PSYCHOLOGIST GLUCOSE - POINT OF CARE Routine 03/29/2024 3:39 AM ENGINEERING PSYCHOLOGIST GLUCOSE - POINT OF CARE Routine 03/28/2024 10:22 PM ENGINEERING PSYCHOLOGIST GLUCOSE - POINT OF CARE Routine 03/28/2024 8:30 PM ENGINEERING PSYCHOLOGIST GLUCOSE - POINT OF CARE Routine 03/28/2024 6:17 PM ENGINEERING PSYCHOLOGIST PATHOLOGY TISSUE EXAM (STL) Routine 03/28/2024 4:08 PM ENGINEERING PSYCHOLOGIST Diagnosis unknown ENDOTRACHEAL TUBE NOTE Routine 2:41 PM ENGINEERING PSYCHOLOGIST VT LAP,DIAGNOSTIC ABDOMEN 03/28/2024 2:20 PM ENGINEERING PSYCHOLOGIST HCG URINE QUALITATIVE Routine 03/28/2024 1:58 PM ENGINEERING PSYCHOLOGIST BLOOD TYPE VERIFICATION Routine 03/28/2024 10:46 AM ENGINEERING PSYCHOLOGIST TYPE + SCREEN PANEL Routine 03/28/2024 9 :55 AM ENGINEERING PSYCHOLOGIST COMPREHENSIVE METABOLIC PANEL STAT 03/28/2024 9:55 AM ENGINEERING PSYCHOLOGIST Abdominal pain, unspecified abdominal location CBC W AUTO DIFFERENTIAL STAT 03/28/2024 9:55 AM ENGINEERING PSYCHOLOGIST Abdominal pain, unspecified abdominal location GLUCOSE - POINT OF CARE Routine 03/28/2024 5:18 AM ENGINEERING PSYCHOLOGIST GLUCOSE - POINT OF CARE Routine 03/27/2024 11:49 PM ENGINEERING PSYCHOLOGIST US PELVIS W TRANSVAG NON OB STAT 03/27/2024 10:03 PM ENGINEERING PSYCHOLOGIST Abdominal pain, right lower quadrant US ABDOMEN DOPPLER ONLY LTD STAT 03/27/2024 10:03 PM ENGINEERING PSYCHOLOGIST Abdominal pain, right lower quadrant GLUCOSE - POINT OF CARE Routine 03/27/2024 8:52 PM ENGINEERING PSYCHOLOGIST GLUCOSE - POINT OF CARE Routine 03/27/2024 4:[address] ABDOMEN PELVIS W CONTRAST STAT 03/27/2024 4:18 PM ENGINEERING PSYCHOLOGIST Abdominal pain, right lower quadrant LACTIC ACID BLOOD STAT 03/27/2024 3:3 8 PM ENGINEERING PSYCHOLOGIST HCG BETA BLOOD QUANTITATIVE STAT 03/27/2024 12:27 PM ENGINEERING PSYCHOLOGIST LIPASE BLOOD STAT 03/27/2024 12:27 PM ENGINEERING PSYCHOLOGIST COMPREHENSIVE METABOLIC PANEL STAT 03/27/2024 12:27 PM ENGINEERING PSYCHOLOGIST CBC W AUTO DIFFERENTIAL STAT 03/27/2024 12:27 PM ENGINEERING PSYCHOLOGIST URINE MICROSCOPIC ONLY REFLEX TO CULTURE STAT 03/27/2024 12:24 PM ENGINEERING PSYCHOLOGIST URINALYSIS REFLEX MICROSCOPIC REFLEX CULTURE STAT 03/27/2024 12:24 PM ENGINEERING PSYCHOLOGIST CULTURE URINE STAT 03/27/2024 12:24 PM ENGINEERING PSYCHOLOGIST MAGNESIUM BLOOD STAT 02/19/2024 3:40 PM ENGINEERING PSYCHOLOGIST COMPREHENSIVE METABOLIC PANEL STAT 02/19/2024 3:40 PM ENGINEERING PSYCHOLOGIST GLUCOSE - POINT OF CARE Routine 02/19/2024 12:25 PM ENGINEERING PSYCHOLOGIST URINALYSIS W/MICROSCOPIC REFLEX TO CULTURE STAT 02/19/2024 12:22 PM ENGINEERING PSYCHOLOGIST HCG BETA BLOOD QUANTITATIVE STAT 02/19/2024 12:19 PM ENGINEERING PSYCHOLOGIST LACTIC ACID BLOOD REFLEX TO REPEAT STAT 02/19/2024 12:19 PM ENGINEERING PSYCHOLOGIST CBC W AUTO DIFFERENTIAL STAT 02/19/2024 12:19 PM ENGINEERING PSYCHOLOGIST GLUCOSE - POINT OF CARE Routine 02/19/2024 12:05 PM ENGINEERING PSYCHOLOGIST PATHOLOGY TISSUE Routine 01/12/2024 8:15 AM CDT Insulinoma GLUCOSE - POINT OF CARE Routine 01/12/2024 8:12 AM CDT VT ENDOSCOPIC ULTRASOUND EXAM 01/12/2024 7:56 AM CDT Insulinoma ENDOSCOPIC ULTRASONOGRAPHY, GI Routine 01/12/2024 7:43 AM CDT HCG URINE QUALITATIVE - POCT (IP) INTERFACED Routine 01/12/2024 7:16 AM CDT HCG URINE QUAL POCT NOTIFICATION STAT 01/12/2024 7:10 AM CDT Insulinoma from Last 3 Months Results * CARDIAC RHYTHM STRIP ORDER (03/30/2024 11:50 PM ENGINEERING PSYCHOLOGIST) Narrative 03/30/2024 11:50 PM ENGINEERING PSYCHOLOGIST Ordered by an unspecified provider. Scanned Document CARDIAC SERVICES ORD ERABLES * GLUCOSE - POINT OF CARE (03/29/2024 8:41 AM ENGINEERING PSYCHOLOGIST) Only the most recent of13 resultswithin the time period is included. Glucose WB/POC 78 70 - 99 mg/dL 03/29/2024 3:10 PM ENGINEERING PSYCHOLOGIST [facility] Specimen Type Cap Fingerstick 2024 3:10 PM ENGINEERING PSYCHOLOGIST [facility] Blood BLOOD SPECIMEN / Unknown 03/29/2024 8:41 AM ENGINEERING PSYCHOLOGIST 03/29/2024 3:10 PM ENGINEERING PSYCHOLOGIST Ly Traore MD LAB - POINT OF CARE ORDERABLES [facility] [address] [place] [address] * PATHOLOGY TISSUE EXAM (STL) (03/28/2024 4:08 PM ENGINEERING PSYCHOLOGIST) Case Report Surgical Pathology Report ? Case: [id number] ? Authorizing Provider: ??Dory Perez MD ?Collected: ? 03/28/2024 04:08 PM ? Ordering Location: ? [facility] ANTEPARTUM/MOTHER ??Received: ?03/29/2024 07:38 AM ? BABY ? Pathologist: ? Christiane Mooney MD ? Specimen: ?Ovarian Cyst, right ovarian cyst ? 03/30/2024 9:13 AM [facility] Final Diagnosis Ovary, right, cyst, excision - Fragments of cystic follicle/follicle cyst 03/30/2024 9:13 AM [facility] Clinical History The patient is a 18-year-old woman. Operative procedure: diagnostic laparoscopy, ovarian cyst excision. 03/30/2024 9:13 AM [facility] Gross Description The requisition and specimen(s) are identified with the patient's name Guillermina Kendall . Received in formalin, specimen A, right ovarian cyst , consists of multiple live-brown to merida-brown, heterogeneous, tissue fragments aggregating to 2.6 x 1.8 x 0.6 cm which are submitted in toto in three cassettes labeled A1-A3. RB 03/30/2024 9:13 AM [facility] Microscopic Description Microscopic examination substantiates the above diagnosis. 03/30/2024 9:13 AM [facility] Pathologist Location at [facility] 03/30/2024 9:13 AM [facility] Disclaimer All histochemical and/or immunohistochemical results are interpreted with controls that demonstrate appropriate staining reactions before reporting results. Note on use of immunocytochemistry reagents: This test was developed and its performance characteristic determined by [facility], Department of Laboratory Medicine. It has not been cleared or approved by the U.S. Food and Drug Administration (FDA). The FDA has determined that such clearance or approval is not necessary. The test is used for clinical purpose. It should not be regarded as investigational or for research. This laboratory is certified to perform high complexity testing. The performance characteristics of the IHC/SANTOS assays have been validated on formalin-fixed paraffin embedded tissues only. The assays have not been validated on decalcified tissues. Results should be interpreted with caution. 03/30/2024 9:13 AM [facility] Embedded Images 03/30/2024 9:13 AM [facility] Pathology/Cytolo gy OVARIAN CYST SPECIMEN / Unknown 03/28/2024 4:08 PM ENGINEERING PSYCHOLOGIST 03/29/2024 7:38 AM ENGINEERING PSYCHOLOGIST Dory Perez MD LAB - PATHOLOGY/CYTO LOGY ORDERABLES [facility] [address] [place] [address] * ETT LINE PERFORMABLE (03/28/2024 2:41 PM ENGINEERING PSYCHOLOGIST) Narrative Mickey Kolb MD - 03/28/2024 2:41 PM ENGINEERING PSYCHOLOGIST Mickey Kolb MD ? 04/03/2024 ??8:52 AM Endotracheal Tube Placement: ? Patient Location: OR. Intubation Event Date/Time: ??03/28/2024 2:27 PM Procedure: intubation (95659) Procedure Section: ?? Sedation: under general anesthesia. Indications for Airway Management: ??anesthesia Procedure pretreatments used? ??No Induction: rapid sequence and cricoid pressure Patient Position: ??supine Mask Ventilation: not attempted. Blade Type: Ilda Blade Size: 3 Laryngoscopy View: grade 1 (full cords) Tube: endotracheal tube Placement: oral Tube type: cuff - inflated Tube Size (MM): 7 Depth of Insertion (CM): 22 Measured From: lips Cuff Inflated With: air Number of Attempts: 1. Placement Verified By: direct visualization, bilateral breath sounds, chest auscultation and CO2 monitor Tube secured with: ??adhesive tape. Dentition unchanged? ??Yes Difficult Airway? ??No. Procedure Start Time: 03/28/2024 2:27 PM. Staff Section ? Anesthesia Provider: Mateo Apple III, MONUMENT MASON-[employer] LINEMAN, Performed the procedure Mickey Kolb MD GENERAL ANESTHESIA O RDERABLES * HCG URINE QUALITATIVE (03/28/2024 1:58 PM ENGINEERING PSYCHOLOGIST) hCG Qualitative Urine Negative Negative 03/28/2024 2:10 PM ENGINEERING PSYCHOLOGIST [facility] Urine URINE / Unknown Collection / Unknown 03/28/2024 1:58 PM ENGINEERING PSYCHOLOGIST 03/28/2024 2:04 PM ENGINEERING PSYCHOLOGIST Narrative [facility] - 03/28/2024 2:10 PM ENGINEERING PSYCHOLOGIST Specimens containing human anti-mouse antibodies may exhibit false positive or false negative results. If qualitative interpretation is inconsistent with clinical evaluation, consider confirmation by an alternative hCG method. Ly Traore MD LAB - URINALYSIS ORD ERABLES Performing Organization Address City/[facility]/ZIP Co de Phone Number [facility] [address] [place] [address] * BLOOD TYPE VERIFICATION (03/28/2024 10:46 AM ENGINEERING PSYCHOLOGIST) ABO Rh AB POS 03/28/2024 11:14 AM ENGINEERING PSYCHOLOGIST [facility] BLOOD BANK LAB Blood Bank BLOOD SPECIMEN / Unknown Lab Venipuncture / Unknown 03/28/2024 10:46 AM ENGINEERING PSYCHOLOGIST 03/28/2024 10:53 AM ENGINEERING PSYCHOLOGIST Ly Traore MD LAB - BLOOD BANK ORD ERABLES Performing Organization Address [facility] Co de Phone Number [facility] BLOOD [facility] [address] [place] [address] * TYPE + SCREEN PANEL (03/28/2024 9:55 AM ENGINEERING PSYCHOLOGIST) Pathologist [facility] ABO Rh AB POS 03/28/2024 10:53 AM ENGINEERING PSYCHOLOGIST [facility] BLOOD BANK LAB Comment:No history; collect retype. Antibody Screen NEG 03/28/2024 10:53 AM ENGINEERING PSYCHOLOGIST [facility] BLOOD BANK LAB Blood Bank BLOOD SPECIMEN / Unknown Lab Venipuncture / Unknown 03/28/2024 9:55 AM ENGINEERING PSYCHOLOGIST 03/28/2024 10:08 AM ENGINEERING PSYCHOLOGIST Ly Traore MD LAB - BLOOD BANK ORD ERABLES Performing Organization Address [facility] Co de Phone Number [facility] BLOOD BANK LAB [address] [place] [address] * CBC W AUTO DIFFERENTIAL (03/28/2024 9:55 AM ENGINEERING PSYCHOLOGIST) Only the most recent of3 resultswithin the time period is included. WBC 5.4 4.0 - 10.7 x10E9/L 03/28/2024 10:20 AM ENGINEERING PSYCHOLOGIST [facility] RBC Count 4.14 3.90 - 5.20 x10E12/L 03/28/2024 10:20 AM [facility] Hemoglobin 12.9 11.9 - 15.8 g/dL 03/28/2024 10:20 AM [facility] Hematocrit 39.0 34.8 - 46.1 % 03/28/2024 10:20 AM [facility] MCV 94.2 80.0 - 98.0 fL 03/28/2024 10:20 AM [facility] MCH 31.2 26.7 - 33.6 pg 03/28/2024 10:20 AM [facility] MCHC 33.1 31.7 - 36.3 g/dL 03/28/2024 10:20 AM [facility] RDW-CV 12.1 11.3 - 14.8 % 03/28/2024 10:20 AM [facility] Platelet Count 258 150 - 420 x10E9/L 03/28/2024 10:20 AM [facility] MPV 9.9 7.8 - 11.4 fL 03/28/2024 10:20 AM [facility] Neutrophil % 61.3 41.0 - 74.0 % 03/28/2024 10:20 AM [facility] Lymphocyte % 29.1 17.0 - 47.0 % 03/28/2024 10:20 AM [facility] Monocyte % 6.8 3.0 - 11.0 % 03/28/2024 10:20 AM [facility] Eosinophil % 1.3 0.0 - 7.0 % 03/28/2024 10:20 AM [facility] Basophil % 1.3 0.0 - 1.6 % 03/28/2024 10:20 AM [facility] Immature Granulocytes % 0.2 0.0 - 1.0 % 03/28/2024 10:20 AM [facility] Neutrophil Absolute 3.33 1.60 - 7.50 x10E9/L 03/28/2024 10:20 AM [facility] Lymphocyte Absolute 1.58 1.00 - 4.40 x10E9/L 03/28/2024 10:20 AM [facility] Monocyte Absolute 0.37 0.15 - 1.00 x10E9/L 03/28/2024 10:20 AM [facility] Eosinophil Absolute 0.07 0.00 - 0.60 x10E9/L 03/28/2024 10:20 AM [facility] Basophil Absolute 0.07 0.00 - 0.13 x10E9/L 03/28/2024 10:20 AM [facility] Blood BLOOD SPECIMEN / Unknown Lab Venipuncture / Unknown 03/28/2024 9:55 AM [facility] 03/28/2024 10:08 AM [facility] Ly Traore MD LAB - HEMATOLOGY ORD ERABLES [facility] [address] [place], [place] [id number] * (ABNORMAL) COMPREHENSIVE METABOLIC PANEL (03/28/2024 9:55 AM [facility]) Only the most recent of3 resultswithin the time period is included. Glucose 123(H) 70 - 99 mg/dL 03/28/2024 10:46 AM [facility] Sodium 137 136 - 145 mmol/L 03/28/2024 10:46 AM [facility] Potassium 3.6 3.5 - 5.1 mmol/L 03/28/2024 10:46 AM [facility] Chloride 108(H) 98 - 107 mmol/L 03/28/2024 10:46 AM [facility] CO2 23 22 - 29 mmol/L 03/28/2024 10:46 AM [facility] Calcium 8.8 8.4 - 10.4 mg/dL 03/28/2024 10:46 AM [facility] Anion Gap 6 6 - 16 mmol/L 03/28/2024 10:46 AM [facility] BUN 10 5.3 - 18.7 mg/dL 03/28/2024 10:46 AM [facility] Creatinine 0.63 0.57 - 1.11 mg/dL 03/28/2024 10:46 AM [facility] Alkaline Phosphatase 63 40 - 150 U/L 03/28/2024 10:46 AM [facility] ALT 12 0 - 55 U/L 03/28/2024 10:46 AM [facility] AST 15 5 - 34 U/L 03/28/2024 10:46 AM ENGINEERING PSYCHOLOGIST [facility] Protein Total 6.1(L) 6.4 - 8.3 gm/dL 03/28/2024 10:46 AM ENGINEERING PSYCHOLOGIST [facility] Albumin 3.8 3.4 - 5.0 gm/dL 03/28/2024 10:46 AM ENGINEERING PSYCHOLOGIST [facility] Bilirubin Total 0.3 0.2 - 1.2 mg/dL 03/28/2024 10:46 AM ENGINEERING PSYCHOLOGIST [facility] eGFR by CKD-EPI >90 >=90 mL/min/1.7 3 m2 03/28/2024 10:46 AM ENGINEERING PSYCHOLOGIST [facility] Blood BLOOD SPECIMEN / Unknown Lab Venipuncture / Unknown 03/28/2024 9:55 AM ENGINEERING PSYCHOLOGIST 03/28/2024 10:08 AM ENGINEERING PSYCHOLOGIST Ly Traore MD LAB - CHEMISTRY [facility] Organization Address City/State/[facility] Co de Phone Number [facility] [facility] [address] [place] [address] * US Pelvis W Transvag Non Ob (03/27/2024 10:03 PM ENGINEERING PSYCHOLOGIST) Anatomical Region Laterality Modality Pelvis Ultrasound 03/28/2024 8:10 AM ENGINEERING PSYCHOLOGIST Impressions 03/28/2024 8:54 AM ENGINEERING PSYCHOLOGIST IMPRESSION: 1.No evidence of ovarian torsion. 2.Right ovarian cyst up to 3.6 cm which contains multiple septations and echogenic debris most compatible with a hemorrhagic cyst. Normal appearance of the left ovary. 3.Trace-small volume of fluid in the cul-de-sac. > Dictated by Reji Ventura MD (president and chief executive officer). Preliminary findings were discussed in detail with the patient's care provider, Dr. Gray by Dr. Palomares via telephone at 10:40 PM on 03/27/2024 with readback comprehension and verification. I, Jamir Dale MD have personally reviewed and interpreted this examination/study. > Interpreting Provider: Jamir Dale MD on 03/28/2024 8:54 AM Narrative 03/28/2024 8:54 AM ENGINEERING PSYCHOLOGIST PROCEDURE: ??US PELVIS W TRANSVAG NON OB, US ABDOMEN DOPPLER ONLY LTD DATE/TIME OF EXAM: ??03/27/2024 10:03 PM CLINICAL INFORMATION: None relevant/not provided if blank. Indication: R10.31: Abdominal pain, right lower quadrant Additional History: 18-year-old female , last menstrual period 03/02/2024. COMPARISON: CT abdomen and pelvis from the same day FINDINGS: Transabdominal: Uterus: 6.1 x 3.8 x 4.7 cm Right ovary: 4.9 x 4.1 x 4.9 cm, volume of 51 mL. Left ovary: 3.7 x 2.1 x 2.6 cm, volume of 10.6 mL. Transvaginal: The right ovary containing multiple cysts, the largest cyst which measures up to 3.6 cm and contain multiple septations and echogenic debris most compatible with a hemorrhagic cyst. The smaller cyst is adjacent to it up to 2.6 cm which appears simple. The left ovary appears normal with multiple small follicles. There is no evidence of ovarian torsion. The uterus appears normal. The endometrial bilayer thickness measures 11 mm, which is within normal limits for phase of menstrual cycle. A small amount of free fluid is present in the cul-de-sac. Procedure Note Jamir Dale MD - 03/28/2024 PROCEDURE: US PELVIS W TRANSVAG NON OB, US ABDOMEN DOPPLER ONLY LTD DATE/TIME OF EXAM: 03/27/2024 10:03 PM CLINICAL INFORMATION: None relevant/not provided if blank. Indication: R10.31: Abdominal pain, right lower quadrant Additional History: 18-year-old female , last menstrual period 03/02/2024. COMPARISON: CT abdomen and pelvis from the same day FINDINGS: Transabdominal: Uterus: 6.1 x 3.8 x 4.7 cm Right ovary: 4.9 x 4.1 x 4.9 cm, volume of 51 mL. Left ovary: 3.7 x 2.1 x 2.6 cm, volume of 10.6 mL. Transvaginal: The right ovary containing multiple cysts, the largest cyst whichmeasures up to 3.6 cm and contain multiple septations and echogenic debris most compatible with a hemorrhagic cyst. The smaller cyst is adjacent to itup to 2.6 cm which appears simple. The left ovary appears normal withmultiple small follicles. There is no evidence of ovarian torsion. The uterus appears normal. The endometrial bilayer thickness measures 11 mm, which is within normal limits for phase of menstrual cycle. A small amount of free fluid is present in the cul-de-sac. IMPRESSION: 1.No evidence of ovarian torsion. 2.Right ovarian cyst up to 3.6 cm which contains multiple septations and echogenic debris most compatible with a hemorrhagic cyst. Normalappearance of the left ovary. 3.Trace-small volume of fluid in the cul-de-sac. > Dictated by Reji Ventura MD (president and chief executive officer). Preliminary findings were discussed in detail with the patient's care provider, Dr. Gray by Dr. Palomares via telephone at 10:40 PM on 03/27/2024 with readback comprehension and verification. Jamir Morfin MD have personally reviewed and interpreted this examination/study. > Interpreting Provider: Jamir aDle MD on 03/28/2024 8:54 AM Jonathan Bush MD US ORDERABLES * US PELVIS DOPPLER LTD (03/27/2024 10:03 PM ENGINEERING PSYCHOLOGIST) Anatomical Region Laterality Modality Abdomen Ultrasound 03/28/2024 8:10 AM ENGINEERING PSYCHOLOGIST Impressions 03/28/2024 8:54 AM ENGINEERING PSYCHOLOGIST IMPRESSION: 1.No evidence of ovarian torsion. 2.Right ovarian cyst up to 3.6 cm which contains multiple septations and echogenic debris most compatible with a hemorrhagic cyst. Normal appearance of the left ovary. 3.Trace-small volume of fluid in the cul-de-sac. > Dictated by Reji Ventura MD (president and chief executive officer). Preliminary findings were discussed in detail with the patient's care provider, Dr. Gray by Dr. Palomares via telephone at 10:40 PM on 03/27/2024 with readback comprehension and verification. Jamir Morfin MD have personally reviewed and interpreted this examination/study. > Interpreting Provider: Jamir Dale MD on 03/28/2024 8:54 AM Narrative 03/28/2024 8:54 AM ENGINEERING PSYCHOLOGIST PROCEDURE: ??US PELVIS W TRANSVAG NON OB, US ABDOMEN DOPPLER ONLY LTD DATE/TIME OF EXAM: ??03/27/2024 10:03 PM CLINICAL INFORMATION: None relevant/not provided if blank. Indication: R10.31: Abdominal pain, right lower quadrant Additional History: 18-year-old female , last menstrual period 03/02/2024. COMPARISON: CT abdomen and pelvis from the same day FINDINGS: Transabdominal: Uterus: 6.1 x 3.8 x 4.7 cm Right ovary: 4.9 x 4.1 x 4.9 cm, volume of 51 mL. Left ovary: 3.7 x 2.1 x 2.6 cm, volume of 10.6 mL. Transvaginal: The right ovary containing multiple cysts, the largest cyst which measures up to 3.6 cm and contain multiple septations and echogenic debris most compatible with a hemorrhagic cyst. The smaller cyst is adjacent to it up to 2.6 cm which appears simple. The left ovary appears normal with multiple small follicles. There is no evidence of ovarian torsion. The uterus appears normal. The endometrial bilayer thickness measures 11 mm, which is within normal limits for phase of menstrual cycle. A small amount of free fluid is present in the cul-de-sac. Procedure Note Jamir Dale MD - 03/28/2024 PROCEDURE: US PELVIS W TRANSVAG NON OB, US ABDOMEN DOPPLER ONLY LTD DATE/TIME OF EXAM: 03/27/2024 10:03 PM CLINICAL INFORMATION: None relevant/not provided if blank. Indication: R10.31: Abdominal pain, right lower quadrant Additional History: 18-year-old female , last menstrual period 03/02/2024. COMPARISON: CT abdomen and pelvis from the same day FINDINGS: Transabdominal: Uterus: 6.1 x 3.8 x 4.7 cm Right ovary: 4.9 x 4.1 x 4.9 cm, volume of 51 mL. Left ovary: 3.7 x 2.1 x 2.6 cm, volume of 10.6 mL. Transvaginal: The right ovary containing multiple cysts, the largest cyst whichmeasures up to 3.6 cm and contain multiple septations and echogenic debris most compatible with a hemorrhagic cyst. The smaller cyst is adjacent to itup to 2.6 cm which appears simple. The left ovary appears normal withmultiple small follicles. There is no evidence of ovarian torsion. The uterus appears normal. The endometrial bilayer thickness measures 11 mm, which is within normal limits for phase of menstrual cycle. A small amount of free fluid is present in the cul-de-sac. IMPRESSION: 1.No evidence of ovarian torsion. 2.Right ovarian cyst up to 3.6 cm which contains multiple septations and echogenic debris most compatible with a hemorrhagic cyst. Normalappearance of the left ovary. 3.Trace-small volume of fluid in the cul-de-sac. > Dictated by Reji Ventura MD (president and chief executive officer). Preliminary findings were discussed in detail with the patient's care provider, Dr. Gray by Dr. Palomares via telephone at 10:40 PM on 03/27/2024 with readback comprehension and verification. I, Jamir Dale MD have personally reviewed and interpreted this examination/study. > Interpreting Provider: Jamir Dale MD on 03/28/2024 8:54 AM Jonathan Bush MD US ORDERABLES * CT Abdomen Pelvis W Contrast (03/27/2024 4:18 PM ENGINEERING PSYCHOLOGIST) Anatomical Region Laterality Modality Abdomen, Pelvis Computed Tomogra phy 03/27/2024 4:25 PM ENGINEERING PSYCHOLOGIST Impressions 03/27/2024 10:34 PM ENGINEERING PSYCHOLOGIST IMPRESSION: 1.Complex multiloculated and large cysts in the right adnexa measuring 5.1 x 4.5 cm. This can be further evaluated with ultrasound if clinically indicated. 2.A 3.3 x 1.5 cm cyst in the left adnexa, within physiologic limits. 3.Appendix is not visualized. 4.4 mm nonobstructing stone in the upper pole of the left kidney. > Dictated by Adrienne Zuñiga MD (Leadership Recruiter)2 IBatool MD have personally reviewed and interpreted this examination/study. > Interpreting Provider: Batool Mesa MD on 03/27/2024 10:34 PM Narrative 03/27/2024 10:34 PM ENGINEERING PSYCHOLOGIST PROCEDURE: ??CT ABDOMEN PELVIS W CONTRAST, DATE/TIME OF EXAM: ??03/27/2024 4:19 PM, LOCATION ??[facility] INDICATION: R10.31: Abdominal pain, right lower quadrant ADDITIONAL CLINICAL INFORMATION: Ordering Provider Reason For Exam: ??abdominal pain, RLQ Technologist Note: Additional: COMPARISON: None. TECHNIQUE: CT of the abdomen and pelvis with IOPAMIDOL 76 % IV SOLN:75 mL IV contrast. Coronal and sagittal reformatted images were submitted. The reported CTDIvol (mGy) and DLP (mGy-cm) values are generated from scan acquisition factors based on 32 cm (body) or 16 cm (head) phantoms and may underestimate or overestimate the actual patient dose based on patient size and other factors. FINDINGS: Chest: The lung bases are clear. Hepatobiliary: Normal liver size and attenuation. No gallbladder calculus, gallbladder wall thickening or biliary dilation. Pancreas: Normal without peripancreatic fluid collection. Spleen: Normal attenuation without mass. Adrenal glands: Normal in morphology without mass lesion. : Normal appearance of the kidneys with symmetric parenchymal enhancement. There is a 4 mm nonobstructing kidney stone in the superior pole of the left kidney. No evidence of hydronephrosis. Bladder is within normal limits. The uterus is normal. There is a complex multiloculated enlarged cyst in the right adnexa measuring 5.1 x 4.5 cm in series 3, image 110. There is a 3.3 x 1.5 cm cyst in the left adnexa (series 4, image 37. GI: The visualized small and large bowel loops are within normal limit. Appendix is not visualized however there is no inflammatory changes in the right lower abdomen to concern for acute appendicitis. Vascular: The aorta and inferior vena cava are normal. Other: A small amount of free fluid in the pelvis. No free air. Bones: The bones are normal. Procedure Note Peyton Mesa MD - 03/27/2024 PROCEDURE: CT ABDOMEN PELVIS W CONTRAST, DATE/TIME OF EXAM: 03/27/2024 4:19 PM, LOCATION [facility] INDICATION: R10.31: Abdominal pain, right lower quadrant ADDITIONAL CLINICAL INFORMATION: Ordering Provider Reason For Exam: abdominal pain, RLQ Technologist Note: Additional: COMPARISON: None. TECHNIQUE: CT of the abdomen and pelvis with IOPAMIDOL 76 % IV SOLN:75mL IV contrast. Coronal and sagittal reformatted images were submitted. The reported CTDIvol (mGy) and DLP (mGy-cm) values are generated fromscan acquisition factors based on 32 cm (body) or 16 cm (head) phantoms andmay underestimate or overestimate the actual patient dose based on patientsize and other factors. FINDINGS: Chest: The lung bases are clear. Hepatobiliary: Normal liver size and attenuation. No gallbladdercalculus, gallbladder wall thickening or biliary dilation. Pancreas: Normal without peripancreatic fluid collection. Spleen: Normal attenuation without mass. Adrenal glands: Normal in morphology without mass lesion. : Normal appearance of the kidneys with symmetric parenchymal enhancement. There is a 4 mm nonobstructing kidney stone in the superior pole of the left kidney. No evidence of hydronephrosis. Bladder iswithin normal limits. The uterus is normal. There is a complex multiloculated enlarged cyst in the right adnexa measuring 5.1 x 4.5 cm in series 3, image 110. There matias 3.3 x 1.5 cm cyst in the left adnexa (series 4, image 37. GI: The visualized small and large bowel loops are within normal limit. Appendix is not visualized however there is no inflammatory changes inthe right lower abdomen to concern for acute appendicitis. Vascular: The aorta and inferior vena cava are normal. Other: A small amount of free fluid in the pelvis. No free air. Bones: The bones are normal. IMPRESSION: 1.Complex multiloculated and large cysts in the right adnexa measuring5.1 x 4.5 cm. This can be further evaluated with ultrasound if clinically indicated. 2.A 3.3 x 1.5 cm cyst in the left adnexa, within physiologic limits. 3.Appendix is not visualized. 4.4 mm nonobstructing stone in the upper pole of the left kidney. > Dictated by Adrienne Zuñiga MD (Leadership Recruiter)2 IBatool MD have personally reviewed and interpreted this examination/study. > Interpreting Provider: Batool Mesa MD on 03/27/2024 10:34 PM [address] MD CT ORDERABLES * LACTIC ACID BLOOD (03/27/2024 3:38 PM ENGINEERING PSYCHOLOGIST) Lactic Acid-Stat 1.0 <=2.0 mmol/L 03/27/2024 4:10 PM ENGINEERING PSYCHOLOGIST [facility] Blood BLOOD SPECIMEN / Unknown Venipuncture / Unknown 03/27/2024 3:38 PM ENGINEERING PSYCHOLOGIST 03/27/2024 3:45 PM ENGINEERING PSYCHOLOGIST Jonathan Bush MD LAB - CHEMISTRY ORD ERABLES Performing Organization Address [facility]/ZIP Co de Phone Number [address] [address], [facility] [phone] * HCG BETA BLOOD QUANTITATIVE (03/27/2024 12:27 PM ENGINEERING PSYCHOLOGIST) Only the most recent of2 resultswithin the time period is included. Beta-hCG Total Quantitative <3 mIU/mL 03/27/2024 1:45 PM ENGINEERING PSYCHOLOGIST [facility] Comment: HCG Numeric Result Interpretation: ? Non- Females: ? < 5 mIU/mL ? Post-Menopausal Females: ??< 7 mIU/mL ? This assay is cleared for use in the early detection of only. It is not approved for any other uses such as tumor marker screening, tumor marker monitoring, etc. and should not be used for any other purposes. Blood BLOOD SPECIMEN / Unknown Venipuncture / Unknown 03/27/2024 12:27 PM ENGINEERING PSYCHOLOGIST 03/27/2024 1:00 PM ENGINEERING PSYCHOLOGIST Josette Wallis PA-C LAB - PROJECT TECHNICIAN RY ORDERABLES Performing Organization Address [facility]/ZIP Co de Phone Number [address] [address], [place] [phone] * LIPASE BLOOD (03/27/2024 12:27 PM ENGINEERING PSYCHOLOGIST) Lipase 24 8 - 78 U/L 03/27/2024 1:38 PM ENGINEERING PSYCHOLOGIST [facility] Blood BLOOD SPECIMEN / Unknown Venipuncture / Unknown 03/27/2024 12:27 PM ENGINEERING PSYCHOLOGIST 03/27/2024 1:00 PM ENGINEERING PSYCHOLOGIST Narrative [facility] - 03/27/2024 1:38 PM ENGINEERING PSYCHOLOGIST Lipase results from the [employer] Alinity analyzer may not be comparable with other methodologies. Josette Wallis PA-C LAB - PROJECT TECHNICIAN RY ORDERABLES [address] [address], [place] [phone] * URINE MICROSCOPIC ONLY REFLEX TO CULTURE (03/27/2024 12:24 PM ENGINEERING PSYCHOLOGIST) Reflex Status Culture to follow 03/27/2024 1:[address] [facility] RBC UA 0-2 None Seen, 0-2, 3-5 /HPF 03/27/2024 1:[address] [facility] WBC UA 0-5 None Seen, 0-5 /HPF 03/27/2024 1:[address] [facility] Squamous Epithelial Cells UA 0-2 None Seen, 0-2, 3-5 /HPF 03/27/2024 1:[address] [facility] Mucus UA 1+ /LPF 03/27/2024 1:[address] [facility] Urine URINE SPECIMEN OBTAINED BY CLEAN CATCH PROCEDURE / Unknown Collection / Unknown 03/27/2024 12:24 PM ENGINEERING PSYCHOLOGIST 03/27/2024 12:52 PM [facility] - 03/27/2024 1:08 PM ENGINEERING PSYCHOLOGIST Josette Wallis PA-C LAB - URINALY SIS ORDERABLES Performing Organization Address City/[facility]/ZIP Co de Phone Number [address] [address], [facility] [phone] * (ABNORMAL) URINALYSIS REFLEX MICROSCOPIC REFLEX CULTURE (03/27/2024 12:24 PM ENGINEERING PSYCHOLOGIST) Color UA Yellow Straw, Yellow 03/27/2024 1:[address] [facility] Clarity UA Cloudy(A) Clear 03/27/2024 1:[address] [facility] Specific [place] UA 1.005 1.005 - 1.030 03/27/2024 1:[address] [facility] pH UA 7.0 5.0 - 8.0 pH 03/27/2024 1:[address] [facility] Protein UA Negative Negative 03/27/2024 1:[address] [facility] Glucose UA Negative Negative 03/27/2024 1:[address] [facility] Ketone UA Negative Negative 03/27/2024 1:[address] [facility] Bilirubin UA Negative Negative 03/27/2024 1:[address] [facility] Blood UA 1+(A) Negative 03/27/2024 1:[address] [facility] Nitrite UA Negative Negative 03/27/2024 1:[address] [facility] Leukocyte Esterase Trace(A) Negative 03/27/2024 1:[address] [facility] Urobilinogen UA Negative Negative mg/dL 03/27/2024 1:[address] [facility] Urine URINE SPECIMEN OBTAINED BY CLEAN CATCH PROCEDURE / Unknown Collection / Unknown 03/27/2024 12:24 PM ENGINEERING PSYCHOLOGIST 03/27/2024 12:52 PM ENGINEERING PSYCHOLOGIST Narrative [facility] - 03/27/2024 1:02 PM ENGINEERING PSYCHOLOGIST Josette Wallis PA-C LAB - URINALY SIS ORDERABLES [facility] [address] [place] [address], [facility] [phone] * CULTURE URINE (03/27/2024 12:24 PM ENGINEERING PSYCHOLOGIST) Pathologist [facility] Culture Urine 50,000-100,000 CFU/mL urogenital papa 03/29/2024 11:49 AM ENGINEERING PSYCHOLOGIST [facility] Urine URINE SPECIMEN OBTAINED BY CLEAN CATCH PROCEDURE / Unknown Collection / Unknown 03/27/2024 12:24 PM ENGINEERING PSYCHOLOGIST 03/27/2024 1:08 PM ENGINEERING PSYCHOLOGIST Josette Wallis PA-C LAB - MICROBI OLOGY ORDERABLES [facility] [address] [place] [address], [facility] [phone] * MAGNESIUM BLOOD (02/19/2024 3:40 PM ENGINEERING PSYCHOLOGIST) Magnesium 2.1 1.6 - 2.6 mg/dL 02/19/2024 4:[address] [facility] Blood BLOOD SPECIMEN / Unknown Venipuncture / Unknown 02/19/2024 3:40 PM ENGINEERING PSYCHOLOGIST 02/19/2024 4:00 PM ENGINEERING PSYCHOLOGIST Radha Mhoan MONUMENT [employer]ON-CONTENT SPECIALIST LAB - PROJECT TECHNICIAN RY ORDERABLES [facility] [address] [place] [address] [phone] * (ABNORMAL) URINALYSIS W/MICROSCOPIC REFLEX TO CULTURE (02/19/2024 12:22 PM ENGINEERING PSYCHOLOGIST) Color UA Straw Straw, Yellow 02/19/2024 12:[address] [facility] Clarity UA Clear Clear 02/19/2024 12:[address] [facility] Specific [place] UA 1.004(L) 1.005 - 1.030 02/19/2024 12:[address] [facility] pH UA 7.0 5.0 - 8.0 pH 02/19/2024 12:[address] [facility] Protein UA Negative Negative 02/19/2024 12:[address] [facility] Glucose UA Negative Negative 02/19/2024 12:[address] [facility] Ketone UA Negative Negative 02/19/2024 12:[address] [facility] Bilirubin UA Negative Negative 02/19/2024 12:[address] [facility] Blood UA Negative Negative 02/19/2024 12:[address] [facility] Nitrite UA Negative Negative 02/19/2024 12:[address] [facility] Leukocyte Esterase Negative Negative 02/19/2024 12:[address] [facility] Urobilinogen UA Negative Negative mg/dL 02/19/2024 12:[address] [facility] RBC UA 0-2 None Seen, 0-2, 3-5 /HPF 02/19/2024 12:[address] [facility] WBC UA 0-5 None Seen, 0-5 /HPF 02/19/2024 12:[address] [facility] Bacteria UA Trace(A) None /HPF 02/19/2024 12:37 PM ENGINEERING PSYCHOLOGIST [facility] Squamous Epithelial Cells UA 0-2 None Seen, 0-2, 3-5 /HPF 02/19/2024 12:37 PM ENGINEERING PSYCHOLOGIST [facility] Urine URINE SPECIMEN OBTAINED BY CLEAN CATCH PROCEDURE / Unknown Collection / Unknown 02/19/2024 12:22 PM ENGINEERING PSYCHOLOGIST 02/19/2024 12:28 PM ENGINEERING PSYCHOLOGIST Narrative [facility] - 02/19/2024 12:37 PM ENGINEERING PSYCHOLOGIST Culture Not Indicated Radha MOON LAB - URINALY SIS ORDERABLES Performing Organization Address [facility]/ZIP Co de Phone Number [facility] [address] [place] [address], [facility] [phone] * LACTIC ACID BLOOD REFLEX TO REPEAT (02/19/2024 12:19 PM ENGINEERING PSYCHOLOGIST) Lactic Acid-Stat 1.7 <=2.0 mmol/L 02/19/2024 1:02 PM ENGINEERING PSYCHOLOGIST [facility] Blood BLOOD SPECIMEN / Unknown Venipuncture / Unknown 02/19/2024 12:19 PM ENGINEERING PSYCHOLOGIST 02/19/2024 12:31 PM ENGINEERING PSYCHOLOGIST Radha MOON LAB - PROJECT TECHNICIAN RY ORDERABLES Performing Organization Address [facility] Co de Phone Number [facility] [address] [place] [address], [place] [phone] * PATHOLOGY TISSUE (01/12/2024 8:15 AM CDT) Case Report Surgical Pathology Report ? Case: [id number] ? Authorizing Provider: ??Sydnee Vieyra MD ?Collected: ? 01/12/2024 08:15 AM ? Ordering Location: ? [facility] ?Received: ?01/12/2024 09:45 AM ? Pathologist: ? Love Moore MD ? Specimens: ?? A) - Gastric, gastric antrum biopsy ? B) - Gastric, gastric body biopsy ? 01/13/2024 8:10 AM [facility] Final Diagnosis Stomach, antrum, biopsy (A): - Mild reactive changes - No active inflammation or H. pylori organisms (H&E examination) Stomach, body, biopsy (B): - No histopathologic abnormality - No active inflammation or H. pylori organisms (H&E examination) 01/13/2024 8:10 AM [facility] Microscopic Description and Comment Microscopic examination substantiates the final diagnosis. 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 Operative procedure/findings: Upper EUS/EGD - no pancreatic masses; erythematous and granular mucosa in the antrum, biopsied; 01/13/2024 8:10 AM [facility] Gross Description The requisition and specimen(s) are identified with the patient's name, Guillermina Kendall. Received in formalin, specimen A , consists of 2 live to live-pink tissue fragments, 0.2-0.4 cm in greatest dimension and 0.6 x 0.2 x 0.2 cm in aggregate. The specimen is submitted in toto in cassette A1. Received in formalin, specimen B consists of 2 live tissue fragments, each 0.3 cm in greatest dimension and 0.6 x 0.1 x 0.1 cm. The specimen is submitted in toto in cassette B1. MB 01/13/2024 8:10 AM CDT [facility] Pathologist Location at [facility] 01/13/2024 8:10 AM CDT [facility] Disclaimer The performance characteristics of all immunohistochemical and indirect immunofluorescence stains (if any) cited in this report were determined by the [facility] Laboratory of [facility]. Some of these tests were developed by our own laboratory and have not been cleared or approved by the US Food and Drug Administration. The FDA does not require this test to go through premarket FDA review. These tests are used for clinical purposes. They should not be regarded as investigational or for research. This laboratory is certified under the Clinical Laboratory Improvement Amendments (CLIA) as qualified to perform high complexity clinical laboratory testing. This case has been personally reviewed and interpreted by the attending (teaching) pathologist. 01/13/2024 8:10 AM CDT [facility] Embedded Images 01/13/2024 8:10 AM CDT [facility] Biopsy, NOS GASTRIC CONTENTS SPECIMEN / Unknown 01/12/2024 8:15 AM CDT 01/12/2024 9:45 AM CDT Biopsy, NOS GASTRIC CONTENTS SPECIMEN / Unknown 01/12/2024 8:20 AM CDT 01/12/2024 9:45 AM CDT Sydnee Vieyra MD LAB - PATHOLOGY/CYTO LOGY ORDERABLES [facility] [address] [place], [place] [address] [phone] * ENDOSCOPIC ULTRASONOGRAPHY, GI (01/12/2024 7:43 AM CDT) Report Endoscopy POC Endoscopy Department Report _ Patient Name: Guillermina Kendall ?Procedure Date: 01/12/2024 7:43 AM ?Date of : 2005 Classification: Outpatient ?Gender: Female Ethnicity: Not or ? Race: White _ Providers: ?Sydnee Vieyra MD, Chi Sinclair, ? (Fellow) Referring MD: ? 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 Throughout the ?procedure, the patient's blood pressure, pulse, and ?oxygen saturations were monitored continuously. The ?[id number] was introduced through the mouth, and ?advanced to the second part of duodenum. The upper ?EUS was accomplished without difficulty. The ?patient tolerated the procedure well. ? Findings: ? ENDOSONOGRAPHIC FINDING: : ? There was no sign of significant endosonographic abnormality in the ? visualized portion of the liver. ? There was no sign of significant endosonographic abnormality in the ? common bile duct which measured 4.4 mm. An unremarkable gallbladder was ? identified. ? Pancreatic parenchymal abnormalities were noted in the pancreatic body. ? These consisted of mild hyperechoic strands not of clinical significance. ? Endosonographic imaging in the pancreatic head, genu of the pancreas, ? pancreatic body, pancreatic tail and uncinate process of the pancreas ? showed no masses. ? No lymphadenopathy seen. ? The pancreatic duct had a normal endosonographic appearance in the ? pancreatic head. The pancreatic duct measured up to 1 mm in diameter. ? ENDOSCOPIC FINDING: : ? The examined esophagus was normal. ? Diffuse mild mucosal changes characterized by erythema and granularity ? were found in the gastric antrum. Biopsies were taken with a cold ? forceps for histology. Altered blood on the surface of the gastric body ? mucosa was seen of small amount and in a dispersed distribution. No ? obvious erosions were seen beneath. ? The ampulla, first portion of the duodenum and second portion of the ? duodenum were normal. ? Estimated Blood Loss: ? Estimated blood loss was minimal. Complications: ?No immediate complications. Impression: ? - Endosonographic imaging in the pancreatic head, ?genu of the pancreas, pancreatic body, pancreatic ?tail and uncinate process of the pancreas showed no ?masses. ?- There was no evidence of significant pathology in ?the visualized portion of the liver. ?- Normal esophagus. ?- Erythematous and granular mucosa in the antrum. ?Biopsied. ?- Normal ampulla, first portion of the duodenum and ?second portion of the duodenum. ?- There was no sign of significant pathology in the ?common bile duct. ?- Pancreatic parenchymal abnormalities consisting ?of hyperechoic strands were noted in the pancreatic ?body. ?- The pancreatic duct had a normal endosonographic ?appearance in the pancreatic head. The pancreatic ?duct measured up to 4.4 mm in diameter. Recommendation: ? - Patient has a contact number available for ?emergencies. The signs and symptoms of potential ?delayed complications were discussed with the ?patient. Return to normal activities tomorrow. ?Written discharge instructions were provided to the ?patient. ?- Resume previous diet. ?- Start Pantoprazole 40 mg daily for 3 months then ?repeat EGD to follow up on healing. ?- Await pathology results. ?- Follow up with endocrinology. ? Attending Participation: ??I was present and participated during the entire ?procedure, including non-flores portions. ? Procedure Code(s): ? --- Professional --- ? 94180, Esophagogastroduod enoscopy, flexible, transoral; with endoscopic ? ultrasound examination, including the esophagus, stomach, and either the ? duodenum or a surgically altered stomach where the jejunum is examined ? distal to the anastomosis ? 58322, Esophagogastroduod enoscopy, flexible, transoral; with biopsy, ? single or multiple Diagnosis Code(s): ?--- Professional --- ?K31.89, Other diseases of stomach and duodenum ?K86.9, Disease of pancreas, unspecified CPT copyright 2021 [employer]. All rights reserved. The codes documented in this report are preliminary and upon wafer polisher review may be revised to meet current compliance requirements. Sydnee Vieyra MD 01/12/2024 10:13:21 AM This report has been signed electronically. Note Initiated On: 01/12/2024 7:43 AM Number of Addenda: 0 ? [facility] ? [address] [place] [address] [facility] 01/12/2024 7:43 AM CDT Sydnee Vieyra MD GI PROCEDURE ORDERAB LES Performing Organization Address [facility] Co de Phone Number [facility] * HCG URINE QUALITATIVE - POCT (IP) INTERFACED (01/12/2024 7:16 AM CDT) HCG Qual Urine Negative Negative 01/12/2024 7:23 AM CDT [facility] Urine URINE / Unknown 01/12/2024 7 :16 AM CDT 01/12/2024 7:23 AM CDT Sydnee Vieyra MD LAB - POINT OF CARE ORDERABLES Performing Organization Address [facility] Co de Phone Number [address] [address], [place] [phone] * HCG URINE QUAL POCT NOTIFICATION (01/12/2024 7:10 AM CDT) Comment Notification Label Only - See Separate Report 01/12/2024 8:30 AM CDT [facility] Urine URINE / Unknown 01/12/2024 7 :10 AM CDT 01/12/2024 7:10 AM CDT Sydnee Vieyra MD LAB - URINALYSIS ORD ERABLES [facility] [address] [place] [address], [facility] [phone] from Last 3 Months Advance Directives Documents on File Type Date Recorded Patient Ham Pumper Expl anation Adv Directive/Living Will/POA 11/29/2023 2:02 PM * Full Code (Latest Code Status on File) Date Activated Date Inactivated Comments 03/28/2024 8:01 AM 03/29/2024 12:28 PM Care Teams Development Officer Relationship Specialty Start Date End Date Provider, No Pcp PCP - General 03/27/24 Jefry Martinez MD [address] [place] [id number] 03/27/24
--- OUTSIDE RECORDS SUMMARY | 2024-04-12 06:38 | XMS_ITS ---
Author Organization [facility] Address [address] [place] [address] Care Team Providers Care Master Esthetician Name Role Phone Leah Croft Primary Care Provider [phone] REASON FOR VISIT RE:Genetics appointment Encounters Encounter Location Date Provider Diagnosis [facility] - Leah Croft [address] [place] [address] 04/03/2024 Leah Croft Plan Of Treatment Next Appt Details Provider Name:Leahsharifa Croft, 03:30:00 PM, [address], [place], [address], Progress Notes * Guillermina TYLERDOB:[birth year] (18 yo F)Acc No.[id number]:04/03/2024 Patient:?Guillermina TYLER :2005???Age:18 Y???Sex:Female Address:[address] [place] [address] [address], [address], [place] [address] * true * Date:? Generated for Carl hoffman/Wilbert/eTransmitting on:?04/12/2024 06:38 AM TOP COATER
--- OUTSIDE RECORDS SUMMARY | 2024-04-12 06:38 | XMS_ITS | Clinical Summary ---
Author Organization [facility] Address [address] [place] [address] Care Team Providers Care Guest Room Attendant Name Role Phone Provider, No Pcp Primary Care Provider Unavailab Jefry Cantor MD Unavailable Source Comments [facility],non-owned Affiliates and Associated Physician Practices is amultiple site organization consisting of ambulatory clinics and hospital sitesin [place], [place], [place] and [place]. This disclosure is being madepursuant to the Care Everywhere program and may not contain all information available regarding this patient. 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 [address] [place] [address] Kg Villa MD Discharge Disposition: Home or Self Care 04/11/2024 Travel 03/30/2024 Telephone [facility]/ EVALUATION UNIT [address] [facility] [place] [address] Scarlett Batista Future Appointment 03/28/2024 2:21 PM STEP DOWN NURSE Anesthesia Event [facility] PERIOPERATIVE [address] [place] [address] Mickey Kolb MD Gill, Nicholas William, MD 03/28/2024 2:00 PM STEP DOWN NURSE - 03/28/2024 3:33 PM STEP DOWN NURSE Surgery [facility]IOPER[facility] [address] [place] [address] Dory Perez MD LAPAROSCOPY CYSTECTOMY 03/28/2024 7:40 AM STEP DOWN NURSE - 03/29/2024 11:10 AM STEP DOWN NURSE Hospital Encounter [facility] 5E ANTEPARTUM/MOTHER BABY [address] [place] [address] Ly Traore MD Discharge Disposition: Home or Self Care 03/28/2024 4:55 AM STEP DOWN NURSE Hospital Encounter [facility] 5E ANTEPARTUM/MOTHER BABY [address] [place] [address] Zakia Gonzalez MD Gynecology 03/28/2024 Travel 03/27/2024 3:09 PM STEP DOWN NURSE - 03/28/2024 7:15 AM [facility] Emergency [facility] EMERGENCY DEPARTMENT [address] [place] [phone] Jonathan Bush MD Cash, Jennifer A, MD Abdominal pain, right lower quadrant; Adnexal cyst Discharge Disposition: Inpatient Hospital 03/27/2024 Travel 03/27/2024 - 03/27/2024 5:12 PM [facility] Emergency [facility] EMERGENCY DEPARTMENT [address] [place] [phone] Discharge Disposition: ED Dismiss - Never Arrived 03/27/2024 Travel 03/20/2024 Orders Only [facility] 3L [address] [facility], [place] [phone] Ervin Herrera MD Glycogen storage disease, type VII (HCC) 02/19/2024 5:07 PM STEP DOWN NURSE - 02/19/2024 5:49 PM STEP DOWN NURSE Emergency [facility] EMERGENCY DEPARTMENT [address] [place] [address] Discharge Disposition: Left Against Medical Advice/Discontinued Care 02/19/2024 Travel 02/15/2024 Telephone [facility] - Nephrology [address] [place] [address] Sydnee Collins MD Med Question 01/16/2024 Orders Only [facility] - GI [address] [place] [address] Sydnee Collins MD Erosive gastritis 01/12/2024 8:01 AM CDT Anesthesia Event [facility] ENDOSCOPY [address] [place] [address] Benedict Cheek II, MD Staheli, Jonathan, DO 01/12/2024 7:55 AM CDT - 01/12/2024 9:00 AM CDT Surgery [facility] ENDOSCOPY [address] [place] [address] Sydnee Collins MD EUS +/- biopsy +/- fiducial placement 01/12/2024 7:00 AM CDT - 01/12/2024 10:28 AM CDT Hospital Encounter [facility] BELL OP [address] [place] [address] Sydnee Collins MD Surgery General Discharge Disposition: Home or Self Care 01/12/2024 Travel 01/11/2024 Travel from Last 3 Months Family History Medical History Relation Name Comments Multiple Sclerosis Father Parkinson's Disease Maternal Grandfather Heart Failure Maternal Grandmother Nephrolithiasis Mother Cancer - Pancreatic Paternal Grandfather Cancer - Breast Paternal Grandmother Amblyopia Neg Hx Blindness Neg Hx Cataract Neg Hx Diabetes Neg Hx Glaucoma Neg Hx Retinal Detachment Neg Hx Strabismus Neg Hx Relation Name Status Comments Father Maternal Grandfather Maternal Grandmother Mother Paternal Grandfather Paternal Grandmother Social History Tobacco Use Types Packs/Day [...] and heating? Not hard at all 03/28/2024 [facility] - Occupational Stress [...] any time in the past 12 m [facility], were you homeless or living in a retirement (including now)? No 03/28/2024 Sex and Gender Information Value Date Recorded Sex Assigned at Not on file Gender Identity Not on file Sexual Orientation Not on file Last Filed Vital Signs Vital Sign Reading Time Taken Comments Blood Pressure 116/81 04/11/2024 9:14 AM STEP DOWN NURSE Pulse 84 04/11/2024 9:14 AM STEP DOWN NURSE Temperature 36.9 ??C (98.5 ??F) 03/29/2024 7:54 AM CS T Respiratory Rate 16 04/11/2024 9:14 AM STEP DOWN NURSE Oxygen Saturation 100% 03/29/2024 7:54 AM STEP DOWN NURSE Inhaled Oxygen Concentration - - Weight 47.4 kg (104 lb 6.4 oz) 04/11/2024 9:14 A M STEP DOWN NURSE Height 166.4 cm (5' 5.5 ) 03/28/2024 7:45 AM STEP DOWN NURSE Body Mass Index 17.11 03/28/2024 7:45 AM STEP DOWN NURSE Plan of Treatment Upcoming Encounters Date Type Department Care Team (Latest Contact Info) Description 04/23/2024 8:00 AM STEP DOWN NURSE Appointment [facility] - Genetics [address] [place] [address] Aj Keen MD [address] [place] [address] 05/30/2024 12:45 PM CDT Hospital Encounter [facility] ENDOSCOPY [address] [place] [address] Sydnee Collins MD [facility] [place] [phone] Surgery General 05/30/2024 12:45 PM CDT - 05/30/2024 1:15 PM CDT Surgery [facility] ENDOSCOPY [address] [place] [address] Sydnee Collins MD [facility] [place] [phone] EGD w/ azalia 10/12/2024 1:00 PM CDT Appointment [facility] MATERNAL/ EVALUATION UNIT [address] [facility] [place] [address] Kg Villa MD [address] [facility] [address] [place], [place] [id number] Scheduled Procedures Name Priority Associated Diagnoses Date/Ti me ESOPHAGOGASTRODUODENOSCOPY ( EGD) DIAGNOSTIC Erosive gastritis 05/30/2024 12:45 PM CDT Health Maintenance Due Date Last Done Comments HIV SCREENING 2018 HPV VACCINE (1 - 3-dose series) 2018 CHLAMYDIA/GONORRHEA SCREENING 2019 MENINGOCOCCAL (Group B) VACCINE (1 of 2 - Standard) 2019 HEPATITIS C SCREENING 04/27/2021 DTAP/TDAP/TD VACCINES (1 - Tdap) 2022 HEPATITIS B VACCINE (1 of 3 - 19+ 3-dose series) 2022 COVID-19 VACCINE (5 - season) 2023 03/09/2023, 03/03/2021, 07/01/2020, Additional history exists INFLUENZA VACCINE (#1) 2023 DEPRESSION SCREENING 03/14/2024 ZOSTER VACCINE (1 of 2) 2053 HIB VACCINE Aged Out No longer eligi ble based on patient's age to complete this topic MENINGOCOCCAL VACCINE Aged Out No char ricarda eligible based on patient's age to complete this topic PNEUMOCOCCAL VACCINE Aged Out No long er eligible based on patient's age to complete this topic Procedures Procedure Name Priority Date/Time Associated Diagnosis Comments CARDIAC RHYTHM STRIP ORDER 03/30/2024 11:50 PM STEP DOWN NURSE GLUCOSE - POINT OF CARE Routine 03/29/2024 8:41 AM STEP DOWN NURSE GLUCOSE - POINT OF CARE Routine 03/29/2024 4:40 AM STEP DOWN NURSE GLUCOSE - POINT OF CARE Routine 03/29/2024 3:39 AM STEP DOWN NURSE GLUCOSE - POINT OF CARE Routine 03/28/2024 10:22 PM STEP DOWN NURSE GLUCOSE - POINT OF CARE Routine 03/28/2024 8:30 PM STEP DOWN NURSE GLUCOSE - POINT OF CARE Routine 03/28/2024 6:17 PM STEP DOWN NURSE PATHOLOGY TISSUE EXAM (STL) Routine 03/28/2024 4:08 PM STEP DOWN NURSE Diagnosis unknown ENDOTRACHEAL TUBE NOTE Routine 2:41 PM STEP DOWN NURSE [place] LAP,DIAGNOSTIC ABDOMEN 03/28/2024 2:20 PM STEP DOWN NURSE HCG URINE QUALITATIVE Routine 03/28/2024 1:58 PM STEP DOWN NURSE BLOOD TYPE VERIFICATION Routine 03/28/2024 10:46 AM STEP DOWN NURSE TYPE + SCREEN PANEL Routine 03/28/2024 9 :55 AM STEP DOWN NURSE COMPREHENSIVE METABOLIC PANEL STAT 03/28/2024 9:55 AM STEP DOWN NURSE Abdominal pain, unspecified abdominal location CBC W AUTO DIFFERENTIAL STAT 03/28/2024 9:55 AM STEP DOWN NURSE Abdominal pain, unspecified abdominal location GLUCOSE - POINT OF CARE Routine 03/28/2024 5:18 AM STEP DOWN NURSE GLUCOSE - POINT OF CARE Routine 03/27/2024 11:49 PM STEP DOWN NURSE US PELVIS W TRANSVAG NON OB STAT 03/27/2024 10:03 PM STEP DOWN NURSE Abdominal pain, right lower quadrant US ABDOMEN DOPPLER ONLY LTD STAT 03/27/2024 10:03 PM STEP DOWN NURSE Abdominal pain, right lower quadrant GLUCOSE - POINT OF CARE Routine 03/27/2024 8:52 PM STEP DOWN NURSE GLUCOSE - POINT OF CARE Routine 03/27/2024 4:[address] ABDOMEN PELVIS W CONTRAST STAT 03/27/2024 4:18 PM STEP DOWN NURSE Abdominal pain, right lower quadrant LACTIC ACID BLOOD STAT 03/27/2024 3:3 8 PM STEP DOWN NURSE HCG BETA BLOOD QUANTITATIVE STAT 03/27/2024 12:27 PM STEP DOWN NURSE LIPASE BLOOD STAT 03/27/2024 12:27 PM STEP DOWN NURSE COMPREHENSIVE METABOLIC PANEL STAT 03/27/2024 12:27 PM STEP DOWN NURSE CBC W AUTO DIFFERENTIAL STAT 03/27/2024 12:27 PM STEP DOWN NURSE URINE MICROSCOPIC ONLY REFLEX TO CULTURE STAT 03/27/2024 12:24 PM STEP DOWN NURSE URINALYSIS REFLEX MICROSCOPIC REFLEX CULTURE STAT 03/27/2024 12:24 PM STEP DOWN NURSE CULTURE URINE STAT 03/27/2024 12:24 PM STEP DOWN NURSE MAGNESIUM BLOOD STAT 02/19/2024 3:40 PM STEP DOWN NURSE COMPREHENSIVE METABOLIC PANEL STAT 02/19/2024 3:40 PM STEP DOWN NURSE GLUCOSE - POINT OF CARE Routine 02/19/2024 12:25 PM STEP DOWN NURSE URINALYSIS W/MICROSCOPIC REFLEX TO CULTURE STAT 02/19/2024 12:22 PM STEP DOWN NURSE HCG BETA BLOOD QUANTITATIVE STAT 02/19/2024 12:19 PM STEP DOWN NURSE LACTIC ACID BLOOD REFLEX TO REPEAT STAT 02/19/2024 12:19 PM STEP DOWN NURSE CBC W AUTO DIFFERENTIAL STAT 02/19/2024 12:19 PM STEP DOWN NURSE GLUCOSE - POINT OF CARE Routine 02/19/2024 12:05 PM STEP DOWN NURSE PATHOLOGY TISSUE Routine 01/12/2024 8:15 AM CDT Insulinoma GLUCOSE - POINT OF CARE Routine 01/12/2024 8:12 AM CDT [place] ENDOSCOPIC ULTRASOUND EXAM 01/12/2024 7:56 AM CDT Insulinoma ENDOSCOPIC ULTRASONOGRAPHY, GI Routine 01/12/2024 7:43 AM CDT HCG URINE QUALITATIVE - POCT (IP) INTERFACED Routine 01/12/2024 7:16 AM CDT HCG URINE QUAL POCT NOTIFICATION STAT 01/12/2024 7:10 AM CDT Insulinoma from Last 3 Months Results * CARDIAC RHYTHM STRIP ORDER (03/30/2024 11:50 PM STEP DOWN NURSE) Narrative 03/30/2024 11:50 PM STEP DOWN NURSE Ordered by an unspecified provider. Scanned Document CARDIAC SERVICES ORD ERABLES * GLUCOSE - POINT OF CARE (03/29/2024 8:41 AM STEP DOWN NURSE) Only the most recent of13 resultswithin the time period is included. Glucose WB/POC 78 70 - 99 mg/dL 03/29/2024 3:10 PM STEP DOWN NURSE [facility] Specimen Type Cap Fingerstick 2024 3:10 PM STEP DOWN NURSE [facility] Blood BLOOD SPECIMEN / Unknown 03/29/2024 8:41 AM STEP DOWN NURSE 03/29/2024 3:10 PM STEP DOWN NURSE Ly Traore MD LAB - POINT OF CARE ORDERABLES Performing Organization Address City/State/[facility] Co de Phone Number [facility] [address] [place] [address] * PATHOLOGY TISSUE EXAM (STL) (03/28/2024 4:08 PM STEP DOWN NURSE) Case Report Surgical Pathology Report ? Case: [id number] ? Authorizing Provider: ??Dory Perez MD ?Collected: ? 03/28/2024 04:08 PM ? Ordering Location: ? [facility] 5E ANTEPARTUM/MOTHER ??Received: ?03/29/2024 07:38 AM ? BABY ? Pathologist: ? Christiane Mooney MD ? Specimen: ?Ovarian Cyst, right ovarian cyst ? 03/30/2024 9:13 AM [facility] Final Diagnosis Ovary, right, cyst, excision - Fragments of cystic follicle/follicle cyst 03/30/2024 9:13 AM [facility] Clinical History The patient is a 18-year-old woman. Operative procedure: diagnostic laparoscopy, ovarian cyst excision. 03/30/2024 9:13 AM [facility] Gross Description The requisition and specimen(s) are identified with the patient's name Guillermina Kendall . Received in formalin, specimen A, right ovarian cyst , consists of multiple live-brown to merida-brown, heterogeneous, tissue fragments aggregating to 2.6 x 1.8 x 0.6 cm which are submitted in toto in three cassettes labeled A1-A3. RB 03/30/2024 9:13 AM [facility] Microscopic Description Microscopic examination substantiates the above diagnosis. 03/30/2024 9:13 AM [facility] Pathologist Location at [facility] 03/30/2024 9:13 AM [facility] Disclaimer All histochemical and/or immunohistochemical results are interpreted with controls that demonstrate appropriate staining reactions before reporting results. Note on use of immunocytochemistry reagents: This test was developed and its performance characteristic determined by [facility], Department of Laboratory Medicine. It has not [...] be interpreted with caution. 03/30/2024 9:13 AM STEP DOWN NURSE [facility] Embedded Images 03/30/2024 9:13 AM STEP DOWN NURSE [facility] Pathology/Cytolo gy OVARIAN CYST SPECIMEN / Unknown 03/28/2024 4:08 PM STEP DOWN NURSE 03/29/2024 7:38 AM STEP DOWN NURSE Dory Perez MD LAB - PATHOLOGY/CYTO LOGY ORDERABLES [facility] [address] [place] [address] * ETT LINE PERFORMABLE (03/28/2024 2:41 PM STEP DOWN NURSE) Narrative Mickey Kolb MD - 03/28/2024 2:41 PM STEP DOWN NURSE Mickey Kolb MD ? 04/03/2024 ??8:52 AM Endotracheal Tube Placement: ? Patient Location: OR. Intubation Event Date/Time: ??03/28/2024 2:27 PM Procedure: intubation ([id number]) Procedure Section: ?? Sedation: under general anesthesia. [...] Section ? Anesthesia Provider: Mateo Apple III, CUPOLA TAPPER-DATA TECHNICIAN, Performed the procedure Mickey Kolb MD GENERAL ANESTHESIA O RDERABLES * HCG URINE QUALITATIVE (03/28/2024 1:58 PM STEP DOWN NURSE) hCG Qualitative Urine Negative Negative 03/28/2024 2:10 PM STEP DOWN NURSE [facility] Urine URINE / Unknown Collection / Unknown 03/28/2024 1:58 PM STEP DOWN NURSE 03/28/2024 2:04 PM STEP DOWN NURSE Narrative [facility] - 03/28/2024 2:10 PM STEP DOWN NURSE Specimens containing human anti-mouse antibodies may exhibit false positive or false negative results. If qualitative interpretation is inconsistent with clinical evaluation, consider confirmation by an alternative hCG method. Ly Traore MD LAB - URINALYSIS ORD ERABLES [facility] [address] [place] [address] * BLOOD TYPE VERIFICATION (03/28/2024 10:46 AM STEP DOWN NURSE) Pathologist [facility] ABO Rh AB POS 03/28/2024 11:14 AM STEP DOWN NURSE [facility] BLOOD [facility] Blood Bank BLOOD SPECIMEN / Unknown Lab Venipuncture / Unknown 03/28/2024 10:46 AM STEP DOWN NURSE 03/28/2024 10:53 AM STEP DOWN NURSE Ly Traore MD LAB - BLOOD BANK ORD ERABLES [facility] BLOOD [facility] [address] [place] [address] * TYPE + SCREEN PANEL (03/28/2024 9:55 AM STEP DOWN NURSE) ABO Rh AB POS 03/28/2024 10:53 AM STEP DOWN NURSE [facility] BLOOD BANK LAB Comment:No history; collect retype. Antibody Screen NEG 03/28/2024 10:53 AM [facility] BLOOD BANK LAB Blood Bank BLOOD SPECIMEN / Unknown Lab Venipuncture / Unknown 03/28/2024 9:55 AM STEP DOWN NURSE 03/28/2024 10:08 AM [facility] Ly Traore MD LAB - BLOOD BANK ORD ERABLES [facility] BLOOD BANK LAB [address] [id number] [phone] * CBC W AUTO DIFFERENTIAL (03/28/2024 9:55 AM [facility]) Only the most recent of3 resultswithin the time period is included. WBC 5.4 4.0 - 10.7 x10E9/L 03/28/2024 10:20 AM [facility] RBC Count 4.14 3.90 - 5.20 x10E12/L 03/28/2024 10:20 AM [facility] Hemoglobin 12.9 11.9 - 15.8 g/dL 03/28/2024 10:20 AM [facility] Hematocrit 39.0 34.8 - 46.1 % 03/28/2024 10:20 AM [facility] MCV 94.2 80.0 - 98.0 fL 03/28/2024 10:20 AM [facility] MCH 31.2 26.7 - 33.6 pg 03/28/2024 10:20 AM [facility] MCHC 33.1 31.7 - 36.3 g/dL 03/28/2024 10:20 AM [facility] RDW-CV 12.1 11.3 - 14.8 % 03/28/2024 10:20 AM [facility] Platelet Count 258 150 - 420 x10E9/L 03/28/2024 10:20 AM [facility] MPV 9.9 7.8 - 11.4 fL 03/28/2024 10:20 AM [facility] Neutrophil % 61.3 41.0 - 74.0 % 03/28/2024 10:20 AM [facility] Lymphocyte % 29.1 17.0 - 47.0 % 03/28/2024 10:20 AM [facility] Monocyte % 6.8 3.0 - 11.0 % 03/28/2024 10:20 AM [facility] Eosinophil % 1.3 0.0 - 7.0 % 03/28/2024 10:20 AM [facility] Basophil % 1.3 0.0 - 1.6 % 03/28/2024 10:20 AM [facility] Immature Granulocytes % 0.2 0.0 - 1.0 % 03/28/2024 10:20 AM [facility] Neutrophil Absolute 3.33 1.60 - 7.50 x10E9/L 03/28/2024 10:20 AM [facility] Lymphocyte Absolute 1.58 1.00 - 4.40 x10E9/L 03/28/2024 10:20 AM [facility] Monocyte Absolute 0.37 0.15 - 1.00 x10E9/L 03/28/2024 10:20 AM [facility] Eosinophil Absolute 0.07 0.00 - 0.60 x10E9/L 03/28/2024 10:20 AM [facility] Basophil Absolute 0.07 0.00 - 0.13 x10E9/L 03/28/2024 10:20 AM [facility] Blood BLOOD SPECIMEN / Unknown Lab Venipuncture / Unknown 03/28/2024 9:55 AM [facility] 03/28/2024 10:08 AM [facility] Ly Traore MD LAB - HEMATOLOGY ORD ERABLES Performing Organization Address City/State/[facility] Co de Phone Number [facility] [address] [place] [address] * (ABNORMAL) COMPREHENSIVE METABOLIC PANEL (03/28/2024 9:55 AM [facility]) Only the most recent of3 resultswithin the time period is included. Glucose 123(H) 70 - 99 mg/dL 03/28/2024 10:46 AM [facility] Sodium 137 136 - 145 mmol/L 03/28/2024 10:46 AM [facility] Potassium 3.6 3.5 - 5.1 mmol/L 03/28/2024 10:46 AM [facility] Chloride 108(H) 98 - 107 mmol/L 03/28/2024 10:46 AM [facility] CO2 23 22 - 29 mmol/L 03/28/2024 10:46 AM [facility] Calcium 8.8 8.4 - 10.4 mg/dL 03/28/2024 10:46 AM [facility] Anion Gap 6 6 - 16 mmol/L 03/28/2024 10:46 AM [facility] BUN 10 5.3 - 18.7 mg/dL 03/28/2024 10:46 AM [facility] Creatinine 0.63 0.57 - 1.11 mg/dL 03/28/2024 10:46 AM [facility] Alkaline Phosphatase 63 40 - 150 U/L 03/28/2024 10:46 AM [facility] ALT 12 0 - 55 U/L 03/28/2024 10:46 AM [facility] AST 15 5 - 34 U/L 03/28/2024 10:46 AM [facility] Protein Total 6.1(L) 6.4 - 8.3 gm/dL 03/28/2024 10:46 AM [facility] Albumin 3.8 3.4 - 5.0 gm/dL 03/28/2024 10:46 AM [facility] Bilirubin Total 0.3 0.2 - 1.2 mg/dL 03/28/2024 10:46 AM [facility] eGFR by CKD-EPI >90 >=90 mL/min/1.7 3 m2 03/28/2024 10:46 AM [facility] Blood BLOOD SPECIMEN / Unknown Lab Venipuncture / Unknown 03/28/2024 9:55 AM STEP DOWN NURSE 03/28/2024 10:08 AM [facility] Ly Traore MD LAB - CHEMISTRY ROCIO DANG [facility] [address] [place] [address] * US Pelvis W Transvag Non Ob (03/27/2024 10:03 PM STEP DOWN NURSE) Anatomical Region Laterality Modality Pelvis Ultrasound 03/28/2024 8:10 AM STEP DOWN NURSE Impressions 03/28/2024 8:54 AM STEP DOWN NURSE IMPRESSION: 1.No evidence of ovarian torsion. 2.Right ovarian cyst up to 3.6 cm which contains multiple septations and echogenic debris most compatible with a hemorrhagic cyst. Normal appearance of the left ovary. 3.Trace-small volume of fluid in the cul-de-sac. > Dictated by Reji Ventura MD (hvac technician residential). Preliminary findings were discussed in detail with the patient's care provider, Dr. Gray by Dr. Palomares via telephone at 10:40 PM on 03/27/2024 with readback comprehension and verification. IJamir MD have personally reviewed and interpreted this examination/study. > Interpreting Provider: Jamir Dale MD on 03/28/2024 8:54 AM Narrative 03/28/2024 8:54 AM STEP DOWN NURSE PROCEDURE: ??US PELVIS W TRANSVAG NON OB, [...] cul-de-sac. > Dictated by Reji Ventura MD (hvac technician residential). Preliminary findings were discussed in detail with the patient's care provider, Dr. Gray by Dr. Palomares via telephone at 10:40 PM on 03/27/2024 with readback comprehension and verification. I, Jamir Dale MD have personally reviewed and interpreted this examination/study. > Interpreting Provider: Jamir Dale MD on 03/28/2024 8:54 AM Jonathan Bush MD US ORDERABLES * US PELVIS DOPPLER LTD (03/27/2024 10:03 PM STEP DOWN NURSE) Anatomical Region Laterality Modality Abdomen Ultrasound 03/28/2024 8:10 AM STEP DOWN NURSE Impressions 03/28/2024 8:54 AM STEP DOWN NURSE IMPRESSION: 1.No evidence of ovarian torsion. 2.Right ovarian cyst up to 3.6 cm which contains multiple septations and echogenic debris most compatible with a hemorrhagic cyst. Normal appearance of the left ovary. 3.Trace-small volume of fluid in the cul-de-sac. > Dictated by Reji Ventura MD (hvac technician residential). Preliminary findings were discussed in detail with the patient's care provider, Dr. Gray by Dr. Palomares via telephone at 10:40 PM on 03/27/2024 with readback comprehension and verification. I, Jamir Dale MD have personally reviewed and interpreted this examination/study. > Interpreting Provider: Jamir Dale MD on 03/28/2024 8:54 AM Narrative 03/28/2024 8:54 AM STEP DOWN NURSE PROCEDURE: ??US PELVIS W TRANSVAG NON OB, [...] cul-de-sac. > Dictated by Reji Ventura MD (hvac technician residential). Preliminary findings were discussed in detail with the patient's care provider, Dr. Gray by Dr. Palomares via telephone at 10:40 PM on 03/27/2024 with readback comprehension and verification. I, Jamir Dale MD have personally reviewed and interpreted this examination/study. > Interpreting Provider: Jamir Dale MD on 03/28/2024 8:54 AM Jonathan Bush MD US ORDERABLES * CT Abdomen Pelvis W Contrast (03/27/2024 4:18 PM STEP DOWN NURSE) Anatomical Region Laterality Modality Abdomen, Pelvis Computed Tomogra phy 03/27/2024 4:25 PM STEP DOWN NURSE Impressions 03/27/2024 10:34 PM STEP DOWN NURSE IMPRESSION: 1.Complex multiloculated and large cysts in the right adnexa measuring 5.1 x 4.5 cm. This can be further evaluated with ultrasound if clinically indicated. 2.A 3.3 x 1.5 cm cyst in the left adnexa, within physiologic limits. 3.Appendix is not visualized. 4.4 mm nonobstructing stone in the upper pole of the left kidney. > Dictated by Adrienne Zuñiga MD (Washtub Worker)2 IBatool MD have personally reviewed and interpreted this examination/study. > Interpreting Provider: Batool Mesa MD on 03/27/2024 10:34 PM Narrative 03/27/2024 10:34 PM STEP DOWN NURSE PROCEDURE: ??CT ABDOMEN PELVIS W CONTRAST, DATE/TIME OF EXAM: ??03/27/2024 4:19 PM, LOCATION ??[facility] INDICATION: R10.31: Abdominal pain, right lower [...] DATE/TIME OF EXAM: 03/27/2024 4:19 PM, LOCATION [facility] INDICATION: R10.31: Abdominal pain, right lower [...] kidney. > Dictated by Adrienne Zuñiga MD (Washtub Worker)2 I, Batool Mesa MD have personally reviewed and interpreted this examination/study. > Interpreting Provider: Batool Mesa MD on 03/27/2024 10:[address] ORDERABLES * LACTIC ACID BLOOD (03/27/2024 3:38 PM STEP DOWN NURSE) [facility] Lactic Acid-Stat 1.0 <=2.0 mmol/L 03/27/2024 4:10 PM STEP DOWN NURSE [facility] Blood BLOOD SPECIMEN / Unknown Venipuncture / Unknown 03/27/2024 3:38 PM STEP DOWN NURSE 03/27/2024 3:45 PM STEP DOWN NURSE Jonathan Bush MD LAB - CHEMISTRY ORD ERABLES [address] [address], [facility] [phone] * HCG BETA BLOOD QUANTITATIVE (03/27/2024 12:27 PM STEP DOWN NURSE) Only the most recent of2 resultswithin the time period is included. [facility] Beta-hCG Total Quantitative <3 mIU/mL 03/27/2024 1:45 PM STEP DOWN NURSE [facility] Comment: HCG Numeric Result Interpretation: ? Non- [...] Unknown Venipuncture / Unknown 03/27/2024 12:27 PM STEP DOWN NURSE 03/27/2024 1:00 PM STEP DOWN NURSE Josette BOLESC LAB - TEXTILE CONVERSION MANAGER RY ORDERABLES Performing Organization Address City/[facility]/ZIP Co de Phone Number [address] [address], [facility] [phone] * LIPASE BLOOD (03/27/2024 12:27 PM STEP DOWN NURSE) Lipase 24 8 - 78 U/L 03/27/2024 1:38 PM [facility] Blood BLOOD SPECIMEN / Unknown Venipuncture / Unknown 03/27/2024 12:27 PM STEP DOWN NURSE 03/27/2024 1:00 PM STEP DOWN NURSE [facility] - 03/27/2024 1:38 PM STEP DOWN NURSE Lipase results from the [employer] Alinity analyzer may not be comparable with other methodologies. Josette Wallis PA-C LAB - TEXTILE CONVERSION MANAGER RY ORDERABLES [address] [address], [place] [phone] * URINE MICROSCOPIC ONLY REFLEX TO CULTURE (03/27/2024 12:24 PM STEP DOWN NURSE) Reflex Status Culture to follow 03/27/2024 1:08 PM [facility] RBC UA 0-2 None Seen, 0-2, 3-5 /HPF 03/27/2024 1:08 PM [facility] WBC UA 0-5 None Seen, 0-5 /HPF 03/27/2024 1:08 PM [facility] Squamous Epithelial Cells UA 0-2 None Seen, 0-2, 3-5 /HPF 03/27/2024 1:08 PM [facility] Mucus UA 1+ /LPF 03/27/2024 1:08 PM [facility] Urine URINE SPECIMEN OBTAINED BY CLEAN CATCH PROCEDURE / Unknown Collection / Unknown 03/27/2024 12:24 PM STEP DOWN NURSE 03/27/2024 12:52 PM STEP DOWN NURSE [facility] - 03/27/2024 1:08 PM STEP DOWN NURSE Josette Wallis PA-C LAB - URINALY SIS ORDERABLES [facility] [address] [place] [id number], [facility] [phone] * (ABNORMAL) URINALYSIS REFLEX MICROSCOPIC REFLEX CULTURE (03/27/2024 12:24 PM STEP DOWN NURSE) Color UA Yellow Straw, Yellow 03/27/2024 1:02 PM [facility] Clarity UA Cloudy(A) Clear 03/27/2024 1:02 PM [facility] Specific [place] UA 1.005 1.005 - 1.030 03/27/2024 1:02 PM [facility] pH UA 7.0 5.0 - 8.0 pH 03/27/2024 1:02 PM [facility] Protein UA Negative Negative 03/27/2024 1:02 PM [facility] Glucose UA Negative Negative 03/27/2024 1:02 PM [facility] Ketone UA Negative Negative 03/27/2024 1:02 PM [facility] Bilirubin UA Negative Negative 03/27/2024 1:02 PM [facility] Blood UA 1+(A) Negative 03/27/2024 1:02 PM [facility] Nitrite UA Negative Negative 03/27/2024 1:02 PM [facility] Leukocyte Esterase Trace(A) Negative 03/27/2024 1:02 PM [facility] Urobilinogen UA Negative Negative mg/dL 03/27/2024 1:02 PM [facility] Urine URINE SPECIMEN OBTAINED BY CLEAN CATCH PROCEDURE / Unknown Collection / Unknown 03/27/2024 12:24 PM STEP DOWN NURSE 03/27/2024 12:52 PM [facility] - 03/27/2024 1:02 PM STEP DOWN NURSE Josette Wallis PA-C LAB - URINALY SIS ORDERABLES [facility] [address] [place] [id number], [facility] [phone] * CULTURE URINE (03/27/2024 12:24 PM STEP DOWN NURSE) Culture Urine 50,000-100,000 CFU/mL urogenital papa 03/29/2024 11:49 AM STEP DOWN NURSE [facility] Urine URINE SPECIMEN OBTAINED BY CLEAN CATCH PROCEDURE / Unknown Collection / Unknown 03/27/2024 12:24 PM STEP DOWN NURSE 03/27/2024 1:08 PM STEP DOWN NURSE Josette Wallis PA-C LAB - MICROBI OLOGY ORDERABLES Performing Organization Address City/[facility]/ZIP Co de Phone Number [facility] [address] [place] [address], [facility] [phone] * MAGNESIUM BLOOD (02/19/2024 3:40 PM STEP DOWN NURSE) Magnesium 2.1 1.6 - 2.6 mg/dL 02/19/2024 4:26 PM STEP DOWN NURSE [facility] Blood BLOOD SPECIMEN / Unknown Venipuncture / Unknown 02/19/2024 3:40 PM STEP DOWN NURSE 02/19/2024 4:00 PM STEP DOWN NURSE Radha MOON LAB - TEXTILE CONVERSION MANAGER RY ORDERABLES [facility] [address] [place] [address], [facility] [phone] * (ABNORMAL) URINALYSIS W/MICROSCOPIC REFLEX TO CULTURE (02/19/2024 12:22 PM STEP DOWN NURSE) Color UA Straw Straw, Yellow 02/19/2024 12:37 PM STEP DOWN NURSE [facility] Clarity UA Clear Clear 02/19/2024 12:37 PM STEP DOWN NURSE [facility] Specific [place] UA 1.004(L) 1.005 - 1.030 02/19/2024 12:37 PM [facility] pH UA 7.0 5.0 - 8.0 pH 02/19/2024 12:37 PM [facility] Protein UA Negative Negative 02/19/2024 12:37 PM STEP DOWN NURSE [facility] Glucose UA Negative Negative 02/19/2024 12:37 PM [facility] Ketone UA Negative Negative 02/19/2024 12:37 PM [facility] Bilirubin UA Negative Negative 02/19/2024 12:37 PM [facility] Blood UA Negative Negative 02/19/2024 12:37 PM [facility] Nitrite UA Negative Negative 02/19/2024 12:37 PM [facility] Leukocyte Esterase Negative Negative 02/19/2024 12:37 PM [facility] Urobilinogen UA Negative Negative mg/dL 02/19/2024 12:37 PM [facility] RBC UA 0-2 None Seen, 0-2, 3-5 /HPF 02/19/2024 12:37 PM [facility] WBC UA 0-5 None Seen, 0-5 /HPF 02/19/2024 12:37 PM [facility] Bacteria UA Trace(A) None /HPF 02/19/2024 12:37 PM [facility] Squamous Epithelial Cells UA 0-2 None Seen, 0-2, 3-5 /HPF 02/19/2024 12:37 PM [facility] Urine URINE SPECIMEN OBTAINED BY CLEAN CATCH PROCEDURE / Unknown Collection / Unknown 02/19/2024 12:22 PM STEP DOWN NURSE 02/19/2024 12:28 PM STEP DOWN NURSE Narrative [facility] - 02/19/2024 12:37 PM STEP DOWN NURSE Culture Not Indicated Radha Mohan APRN-BASE CLOTH INSPECTOR LAB - URINALY SIS ORDERABLES Performing Organization Address [facility]/State/[facility] Co de Phone Number [address] [address], [facility] [phone] * LACTIC ACID BLOOD REFLEX TO REPEAT (02/19/2024 12:19 PM STEP DOWN NURSE) Lactic Acid-Stat 1.7 <=2.0 mmol/L 02/19/2024 1:02 PM [facility] Blood BLOOD SPECIMEN / Unknown Venipuncture / Unknown 02/19/2024 12:19 PM STEP DOWN NURSE 02/19/2024 12:31 PM STEP DOWN NURSE Radha Mohan APRN-BASE CLOTH INSPECTOR LAB - TEXTILE CONVERSION MANAGER RY ORDERABLES Performing Organization Address [facility]/ZIP Co de Phone Number [facility] [address] [place] [phone], [facility] [phone] * PATHOLOGY TISSUE (01/12/2024 8:15 AM CDT) Case Report Surgical Pathology Report ? Case: [id number] ? Authorizing Provider: ??Sydnee Collins MD ?Collected: ? 01/12/2024 08:15 AM ? Ordering Location: ? [facility] ENDOS[facility] ?Received: ?01/12/2024 09:45 AM ? Pathologist: ? Love Moore MD ? Specimens: ?? A) - Gastric, gastric antrum biopsy ? B) - Gastric, gastric body biopsy ? 01/13/2024 8:10 AM CDT [facility] Final Diagnosis Stomach, antrum, biopsy (A): - Mild reactive changes - No active inflammation or H. pylori organisms (H&E examination) Stomach, body, biopsy (B): - No histopathologic abnormality - No active inflammation or H. pylori organisms (H&E examination) 01/13/2024 8:[address] [facility] Microscopic Description and Comment Microscopic examination substantiates the final diagnosis. 01/13/2024 8:[address] 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 Operative procedure/findings: Upper EUS/EGD - no pancreatic masses; erythematous and granular mucosa in the antrum, biopsied; 01/13/2024 8:[address] [facility] Gross Description The requisition and [...] is submitted in toto in cassette B1. 01/13/2024 8:[address] [facility] LAB Pathologist Location at [facility] 01/13/2024 8:[address] [facility] PATH[facility] LAB Disclaimer The performance characteristics of all immunohistochemical and indirect immunofluorescence stains (if any) cited in this report were determined by the Histopathology Laboratory of [facility]. Some of these tests were developed by [...] the attending (teaching) pathologist. 01/13/2024 8:[address] [facility] Embedded Images 01/13/2024 8:10 AM CDT [facility] PATH[facility] Biopsy, NOS GASTRIC CONTENTS SPECIMEN / Unknown 01/12/2024 8:15 AM CDT 01/12/2024 9:45 AM CDT Biopsy, NOS GASTRIC CONTENTS SPECIMEN / Unknown 01/12/2024 8:20 AM CDT 01/12/2024 9:45 AM CDT Sydnee Collins MD LAB - PATHOLOGY/CYTO LOGY ORDERABLES Performing Organization Address City/State/[facility] de Phone Number [facility] PATHOLOG[facility] LAB [address] [place] [address], [facility] [phone] * ENDOSCOPIC ULTRASONOGRAPHY, GI (01/12/2024 7:43 AM CDT) Report Endoscopy POC Endoscopy Department Report _ Patient Name: Guillermina Kendall ?Procedure Date: 01/12/2024 7:43 AM ?Date of : 2005 Classification: Outpatient ?Gender: Female Ethnicity: Not or ? Race: White _ Providers: ?Sydnee Collins MD, Chi Sinclair, ? (Fellow) Referring MD: [...] and ?oxygen saturations were monitored continuously. The ?[id number] was introduced through the mouth, and ?advanced [...] Procedure Code(s): ? --- Professional --- ? 61112, Esophagogastroduod enoscopy, flexible, transoral; with endoscopic ? ultrasound examination, including the esophagus, stomach, and either the ? duodenum or a surgically altered stomach where the jejunum is examined ? distal to the anastomosis ? 91809, Esophagogastroduod enoscopy, flexible, transoral; with biopsy, ? single or multiple Diagnosis Code(s): ?--- Professional --- ?K31.89, Other diseases of stomach and duodenum ?K86.9, Disease of pancreas, unspecified CPT copyright 2021 [employer]. All rights reserved. The codes documented in this report are preliminary and upon pasteurizer review may be revised to meet current compliance requirements. Sydnee Collins MD 01/12/2024 10:13:21 AM This report has been signed electronically. Note Initiated On: 01/12/2024 7:43 AM Number of Addenda: 0 ? [facility] ? [address] [place], [place] [id number] [place] [address] PROVATION 01/12/2024 7:43 AM CDT Sydnee Collins MD GI PROCEDURE ORDERAB LES [facility] [employer]ATION * HCG URINE QUALITATIVE - POCT (IP) INTERFACED (01/12/2024 7:16 AM CDT) HCG Qual Urine Negative Negative 01/12/2024 7:23 AM CDT [facility] Urine URINE / Unknown 01/12/2024 7 :16 AM CDT 01/12/2024 7:23 AM CDT Sydnee Collins MD LAB - POINT OF CARE ORDERABLES [facility] [address] [place] [address], [place] [phone] * HCG URINE QUAL POCT NOTIFICATION (01/12/2024 7:10 AM CDT) Comment Notification Label Only - See Separate Report 01/12/2024 8:30 AM CDT [facility] Urine URINE / Unknown 01/12/2024 7 :10 AM CDT 01/12/2024 7:10 AM CDT Sydnee Collins MD LAB - URINALYSIS ORD ERABLES [facility] [address] [place] [address], [place] [phone] from Last 3 Months Advance Directives Documents on File Type Date Recorded 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
--- OUTSIDE RECORDS SUMMARY | 2024-04-12 06:38 | XMS_ITS | Patient Health Summary ---
Author Organization [facility] Address [address] [place] [address] Care Team Providers Care Orthotic/Prosthetic Clinician Name Role Phone Provider, No Pcp Primary Care Provider Unavailab Jefry Cantor MD Unavailable Note from [facility],non-owned Affiliates and Associated Physician Practices is amultiple site organization consisting of ambulatory clinics and hospital sitesin [place], [place], [place]. This disclosure is being madepursuant to the Care Everywhere program and may not contain all information available regarding this patient. Last updated 17.[facility] Allergies * Alcohol(Anaphylaxis) -High Criticality * Lactase(Urticaria) -Medium Criticality * Lactase-Lactobacillus(Unknown) * Codeine(Cardiac Injury) -High Criticality * Codeine(Other) -High Criticality * Pork Derived Products(Unknown) * Shellfish Allergy(Wheezing) -Medium Criticality Medications * Be aware that medications may not be up to date on this document. Alwaysverify current medications with the patient. * diphenhydrAMINE (Benadryl) 50 MG capsule(Started 11/07/2023) Take 1 (one) capsule by mouth every 4 hours as needed for Itching Take 1 hr prior to the scan * Nutritional Supplement LIQD(Started 11/23/2023) Take 1 container by mouth 2 times daily Vegan or Milk Free Supplement w/o artifical sweeteners Examples: Gelagatito Alexander (1.4 Jude - Standard), DANA Ambrocio Ka'Chava, Huel PRN * octreotide (SandoSTATIN) 50 MCG/ML injection(Started 11/15/2023) INJECT 50MCG (1ML) SUBCUTANEOUSLY TWICE DAILY BEFORE MEALS * pantoprazole EC (Protonix) 40 MG tablet(Started 01/12/2024) Take 1 (one) tablet by mouth once daily for 90 days * oxyCODONE, immediate release, (Roxicodone) 5 MG tablet(Started 03/28/2024) Take 1 (one) tablet by mouth every 6 hours as needed for Pain * acetaminophen (Tylenol) 500 MG tablet(Started 03/28/2024) Take 1 (one) tablet by mouth every 4 hours as needed for Fever or Pain Maximum allowable Acetaminophen amount = 4 Grams (4000 mg) / 24 hours. * ibuprofen (Motrin) 600 MG tablet(Started 03/28/2024) Take 1 (one) tablet by mouth every 6 hours as needed for Pain * polyethylene glycol 3350 (Miralax) 17 GM/SCOOP powder(Started 03/28/2024) Take 17 (seventeen) g by mouth once daily Active Problems Problem Noted Date Diagnosed Date [...] and heating? Not hard at all 03/28/2024 [facility] - Occupational Stress [...] any time in the past 12 m [facility], were you homeless or living in a fpc (including now)? No 03/28/2024 Sex and Gender Information Value Date Recorded Sex Assigned at Not on file Gender Identity Not on file Sexual Orientation Not on file Last Filed Vital Signs Vital Sign Reading Time Taken Comments Blood Pressure 116/81 04/11/2024 9:14 AM FLORIST'S DECORATOR Pulse 84 04/11/2024 9:14 AM FLORIST'S DECORATOR Temperature 36.9 ??C (98.5 ??F) 03/29/2024 7:54 AM CS T Respiratory Rate 16 04/11/2024 9:14 AM FLORIST'S DECORATOR Oxygen Saturation 100% 03/29/2024 7:54 AM FLORIST'S DECORATOR Inhaled Oxygen Concentration - - Weight 47.4 kg (104 lb 6.4 oz) 04/11/2024 9:14 A M FLORIST'S DECORATOR Height 166.4 cm (5' 5.5 ) 03/28/2024 7:45 AM FLORIST'S DECORATOR Body Mass Index 17.11 03/28/2024 7:45 AM FLORIST'S DECORATOR Procedures * CARDIAC RHYTHM STRIP ORDER(Performed 03/30/2024) * GLUCOSE - POINT OF CARE(Performed 03/29/2024) * GLUCOSE - POINT OF CARE(Performed 03/29/2024) * GLUCOSE - POINT OF CARE(Performed 03/29/2024) * GLUCOSE - POINT OF CARE(Performed 03/28/2024) * GLUCOSE - POINT OF CARE(Performed 03/28/2024) * GLUCOSE - POINT OF CARE(Performed 03/28/2024) * PATHOLOGY TISSUE EXAM (STL)(Performed 03/28/2024) Performed for Diagnosis unknown * ENDOTRACHEAL TUBE NOTE(Performed 03/28/2024) * GA LAP,DIAGNOSTIC ABDOMEN(Performed 03/28/2024) * HCG URINE QUALITATIVE(Performed 03/28/2024) * BLOOD TYPE VERIFICATION(Performed 03/28/2024) * TYPE + SCREEN PANEL(Performed 03/28/2024) * COMPREHENSIVE METABOLIC PANEL(Performed 03/28/2024) Performed for Abdominal pain, unspecified abdominal location * CBC W AUTO DIFFERENTIAL(Performed 03/28/2024) Performed for Abdominal pain, unspecified abdominal location * GLUCOSE - POINT OF CARE(Performed 03/28/2024) * GLUCOSE - POINT OF CARE(Performed 03/27/2024) * US PELVIS W TRANSVAG NON OB(Performed 03/27/2024) Performed for Abdominal pain, right lower quadrant * US ABDOMEN DOPPLER ONLY LTD(Performed 03/27/2024) Performed for Abdominal pain, right lower quadrant * GLUCOSE - POINT OF CARE(Performed 03/27/2024) * GLUCOSE - POINT OF CARE(Performed 03/27/2024) * CT ABDOMEN PELVIS W CONTRAST(Performed 03/27/2024) Performed for Abdominal pain, right lower quadrant * LACTIC ACID BLOOD(Performed 03/27/2024) * HCG BETA BLOOD QUANTITATIVE(Performed 03/27/2024) * LIPASE BLOOD(Performed 03/27/2024) * COMPREHENSIVE METABOLIC PANEL(Performed 03/27/2024) * CBC W AUTO DIFFERENTIAL(Performed 03/27/2024) * URINE MICROSCOPIC ONLY REFLEX TO CULTURE(Performed 03/27/2024) * URINALYSIS REFLEX MICROSCOPIC REFLEX CULTURE(Performed 03/27/2024) * CULTURE URINE(Performed 03/27/2024) * MAGNESIUM BLOOD(Performed 02/19/2024) * COMPREHENSIVE METABOLIC PANEL(Performed 02/19/2024) * GLUCOSE - POINT OF CARE(Performed 02/19/2024) * URINALYSIS W/MICROSCOPIC REFLEX TO CULTURE(Performed 02/19/2024) * HCG BETA BLOOD QUANTITATIVE(Performed 02/19/2024) * LACTIC ACID BLOOD REFLEX TO REPEAT(Performed 02/19/2024) * CBC W AUTO DIFFERENTIAL(Performed 02/19/2024) * GLUCOSE - POINT OF CARE(Performed 02/19/2024) * PATHOLOGY TISSUE(Performed 01/12/2024) Performed for Insulinoma * GLUCOSE - POINT OF CARE(Performed 01/12/2024) * GA ENDOSCOPIC ULTRASOUND EXAM(Performed 01/12/2024) Performed for Insulinoma * ENDOSCOPIC ULTRASONOGRAPHY, GI(Performed 01/12/2024) * HCG URINE QUALITATIVE - POCT (IP) INTERFACED(Performed 01/12/2024) * HCG URINE QUAL POCT NOTIFICATION(Performed 01/12/2024) Performed for Insulinoma * GLUCOSE - POINT OF CARE(Performed 11/23/2023) * GLUCOSE - POINT OF CARE(Performed 11/23/2023) * GLUCOSE - POINT OF CARE(Performed 11/23/2023) * GLUCOSE - POINT OF CARE(Performed 11/23/2023) * GLUCOSE - POINT OF CARE(Performed 11/23/2023) * BASIC METABOLIC PANEL (CALCIUM TOTAL)(Performed 11/23/2023) * GLUCOSE - POINT OF CARE(Performed 11/23/2023) * CORTISOL BLOOD LC/MS/MS(Performed 11/23/2023) * SOMATOMEDIN C (IGF-1)(Performed 11/23/2023) * INSULIN LIKE GROWTH FACTOR 2(Performed 11/23/2023) * HYDROXYBUTYRATE BETA(Performed 11/23/2023) * PROINSULIN(Performed 11/23/2023) * C-PEPTIDE(Performed 11/23/2023) * INSULIN FREE + TOTAL(Performed 11/23/2023) * GLUCOSE(Performed 11/23/2023) * GLUCOSE - POINT OF CARE(Performed 11/23/2023) * GLUCOSE - POINT OF CARE(Performed 11/23/2023) * GLUCOSE - POINT OF CARE(Performed 11/23/2023) * GLUCOSE - POINT OF CARE(Performed 11/22/2023) * GLUCOSE - POINT OF CARE(Performed 11/22/2023) * GLUCOSE - POINT OF CARE(Performed 11/22/2023) * GLUCOSE - POINT OF CARE(Performed 11/22/2023) * GLUCOSE - POINT OF CARE(Performed 11/22/2023) * GLUCOSE - POINT OF CARE(Performed 11/22/2023) * GLUCOSE - POINT OF CARE(Performed 11/22/2023) * GLUCOSE - POINT OF CARE(Performed 11/22/2023) * GLUCOSE - POINT OF CARE(Performed 11/22/2023) * GLUCOSE - POINT OF CARE(Performed 11/22/2023) * GLUCOSE - POINT OF CARE(Performed 11/22/2023) * GLUCOSE - POINT OF CARE(Performed 11/22/2023) * GLUCOSE - POINT OF CARE(Performed 11/22/2023) * GLUCOSE - POINT OF CARE(Performed 11/21/2023) * CT PANCREAS WWO CONTRAST(Performed 11/11/2023) Performed for Insulinoma * CREATININE - POCT INTERFACED(Performed 11/11/2023) * EEG(Performed 04/15/2014) * EKG 15-LEAD(Performed 04/15/2014) Performed for Seizure (HCC) * URINE MICROSCOPIC ONLY(Performed 04/14/2014) * DRUG ABUSE URINE PANEL(Performed 04/14/2014) * URINALYSIS REFLEX TO MICROSCOPIC NO CULTURE(Performed 04/14/2014) * DIFFERENTIAL MANUAL(Performed 04/14/2014) * CBC W AUTO DIFFERENTIAL(Performed 04/14/2014) * PHOSPHORUS BLOOD(Performed 04/14/2014) * MAGNESIUM BLOOD(Performed 04/14/2014) * BASIC METABOLIC PANEL (CALCIUM TOTAL)(Performed 04/14/2014) Results * CARDIAC RHYTHM STRIP ORDER (03/30/2024 11:50 PM FLORIST'S DECORATOR) Narrative 03/30/2024 11:50 PM FLORIST'S DECORATOR Ordered by an unspecified provider. Scanned Document CARDIAC SERVICES ORD ERABLES * GLUCOSE - POINT OF CARE (03/29/2024 8:41 AM FLORIST'S DECORATOR) Only the most recent of37 resultswithin the time period is included. Glucose WB/POC 78 70 - 99 mg/dL 03/29/2024 3:10 PM FLORIST'S DECORATOR [facility] Specimen Type Cap Fingerstick 2024 3:10 PM FLORIST'S DECORATOR [facility] Blood BLOOD SPECIMEN / Unknown 03/29/2024 8:41 AM FLORIST'S DECORATOR 03/29/2024 3:10 PM FLORIST'S DECORATOR Ly Traore MD LAB - POINT OF CARE ORDERABLES Performing Organization Address [facility]/State/ZIP Co de Phone Number [facility] [address] [place] [address] * PATHOLOGY TISSUE EXAM (STL) (03/28/2024 4:08 PM FLORIST'S DECORATOR) Case Report Surgical Pathology Report ? Case: [id number] ? Authorizing Provider: ??Dory Perez MD ?Collected: ? 03/28/2024 04:08 PM ? Ordering Location: ? [facility] ANTEPARTUM/MOTHER ??Received: ?03/29/2024 07:38 AM ? [...] [facility] Pathologist Location at [facility] 03/30/2024 9:13 AM [facility] Disclaimer All histochemical and/or immunohistochemical results are interpreted with controls that demonstrate appropriate staining reactions before reporting results. Note on use of immunocytochemistry reagents: This test was developed and its performance characteristic determined by [facility], Department of Laboratory Medicine. It has not [...] be interpreted with caution. 03/30/2024 9:13 AM [facility] Embedded Images 03/30/2024 9:13 AM [facility] Pathology/Cytolo gy OVARIAN CYST SPECIMEN / Unknown 03/28/2024 4:08 PM FLORIST'S DECORATOR 03/29/2024 7:38 AM FLORIST'S DECORATOR Dory Perez MD LAB - PATHOLOGY/CYTO LOGY ORDERABLES [facility] [address] [place] [address] * ETT LINE PERFORMABLE (03/28/2024 2:41 PM FLORIST'S DECORATOR) Narrative Mickey Kolb MD - 03/28/2024 2:41 PM FLORIST'S DECORATOR Mickey Kolb MD ? 04/03/2024 ??8:52 AM Endotracheal Tube Placement: ? Patient Location: OR. Intubation Event Date/Time: ??03/28/2024 2:27 PM Procedure: intubation ([id number]) Procedure Section: ?? Sedation: under general anesthesia. [...] Section ? Anesthesia Provider: Mateo Apple III, PACKER DENTURE-TACTICAL AIR CONTROL PARTY MANAGER, Performed the procedure Mickey Kolb MD GENERAL ANESTHESIA O RDERABLES * HCG URINE QUALITATIVE (03/28/2024 1:58 PM FLORIST'S DECORATOR) hCG Qualitative Urine Negative Negative 03/28/2024 2:10 PM FLORIST'S DECORATOR [facility] Urine URINE / Unknown Collection / Unknown 03/28/2024 1:58 PM FLORIST'S DECORATOR 03/28/2024 2:04 PM FLORIST'S DECORATOR Narrative [facility] - 03/28/2024 2:10 PM FLORIST'S DECORATOR Specimens containing human anti-mouse antibodies may exhibit false positive or false negative results. If qualitative interpretation is inconsistent with clinical evaluation, consider confirmation by an alternative hCG method. Ly Traore MD LAB - URINALYSIS ORD ERABLES Performing Organization Address City/[facility]/ZIP Co de Phone Number [facility] [address] [place] [address] * BLOOD TYPE VERIFICATION (03/28/2024 10:46 AM FLORIST'S DECORATOR) ABO Rh AB POS 03/28/2024 11:14 AM FLORIST'S DECORATOR [facility] Blood Bank BLOOD SPECIMEN / Unknown Lab Venipuncture / Unknown 03/28/2024 10:46 AM FLORIST'S DECORATOR 03/28/2024 10:53 AM FLORIST'S DECORATOR Ly Traore MD LAB - BLOOD BANK ORD ERABLES Performing Organization Address [facility] Co de Phone Number [facility] [address] [place] [address] * TYPE + SCREEN PANEL (03/28/2024 9:55 AM FLORIST'S DECORATOR) ABO Rh AB POS 03/28/2024 10:53 AM FLORIST'S DECORATOR [facility] Comment:No history; collect retype. Antibody Screen NEG 03/28/2024 10:53 AM FLORIST'S DECORATOR [facility] Blood Bank BLOOD SPECIMEN / Unknown Lab Venipuncture / Unknown 03/28/2024 9:55 AM FLORIST'S DECORATOR 03/28/2024 10:08 AM FLORIST'S DECORATOR Ly Traore MD LAB - BLOOD BANK ORD ERABLES Performing Organization Address [facility] Co de Phone Number [facility] [address] [place] [address] * CBC W AUTO DIFFERENTIAL (03/28/2024 9:55 AM FLORIST'S DECORATOR) Only the most recent of4 resultswithin the time period is included. WBC 5.4 4.0 - 10.7 x10E9/L 03/28/2024 10:20 AM FLORIST'S DECORATOR [facility] RBC Count 4.14 3.90 - [...] Lab Venipuncture / Unknown 03/28/2024 9:55 AM [facility] 03/28/2024 10:08 AM [facility] Ly Traore MD LAB - HEMATOLOGY ORD ERABLES [facility] [address], [place] [phone] * (ABNORMAL) COMPREHENSIVE METABOLIC PANEL (03/28/2024 9:55 AM [facility]) Only the most recent of3 resultswithin [...] 5 - 34 U/L 03/28/2024 10:46 AM FLORIST'S DECORATOR [facility] Protein Total 6.1(L) 6.4 - 8.3 gm/dL 03/28/2024 10:46 AM FLORIST'S DECORATOR [facility] Albumin 3.8 3.4 - 5.0 gm/dL 03/28/2024 10:46 AM FLORIST'S DECORATOR [facility] Bilirubin Total 0.3 0.2 - 1.2 mg/dL 03/28/2024 10:46 AM FLORIST'S DECORATOR [facility] eGFR by CKD-EPI >90 >=90 mL/min/1.7 3 m2 03/28/2024 10:46 AM FLORIST'S DECORATOR [facility] Blood BLOOD SPECIMEN / Unknown Lab Venipuncture / Unknown 03/28/2024 9:55 AM FLORIST'S DECORATOR 03/28/2024 10:08 AM FLORIST'S DECORATOR Ly Traore MD LAB - CHEMISTRY ROCIO D[facility] Organization Address City/State/[facility] Co de Phone Number [facility] [address] [place] [phone] * US Pelvis W Transvag Non Ob (03/27/2024 10:03 PM FLORIST'S DECORATOR) Anatomical Region Laterality Modality Pelvis Ultrasound 03/28/2024 8:10 AM FLORIST'S DECORATOR Impressions 03/28/2024 8:54 AM FLORIST'S DECORATOR IMPRESSION: 1.No evidence of ovarian torsion. 2.Right ovarian cyst up to 3.6 cm which contains multiple septations and echogenic debris most compatible with a hemorrhagic cyst. Normal appearance of the left ovary. 3.Trace-small volume of fluid in the cul-de-sac. > Dictated by Reji Ventura MD (residential appraiser). Preliminary findings were discussed in detail with the patient's care provider, Dr. Gray by Dr. Palomares via telephone at 10:40 PM on 03/27/2024 with readback comprehension and verification. I, Jamir Dale MD have personally reviewed and interpreted this examination/study. > Interpreting Provider: Jamir Dale MD on 03/28/2024 8:54 AM Narrative 03/28/2024 8:54 AM FLORIST'S DECORATOR PROCEDURE: ??US PELVIS W TRANSVAG NON OB, [...] cul-de-sac. > Dictated by Reji Ventura MD (residential appraiser). Preliminary findings were discussed in detail with the patient's care provider, Dr. Gray by Dr. Palomares via telephone at 10:40 PM on 03/27/2024 with readback comprehension and verification. Jamir Morfin MD have personally reviewed and interpreted this examination/study. > Interpreting Provider: Jamir Dale MD on 03/28/2024 8:54 AM Jonathan Bush MD US ORDERABLES * US PELVIS DOPPLER LTD (03/27/2024 10:03 PM FLORIST'S DECORATOR) Anatomical Region Laterality Modality Abdomen Ultrasound 03/28/2024 8:10 AM FLORIST'S DECORATOR Impressions 03/28/2024 8:54 AM FLORIST'S DECORATOR IMPRESSION: 1.No evidence of ovarian torsion. 2.Right ovarian cyst up to 3.6 cm which contains multiple septations and echogenic debris most compatible with a hemorrhagic cyst. Normal appearance of the left ovary. 3.Trace-small volume of fluid in the cul-de-sac. > Dictated by Reji Ventura MD (residential appraiser). Preliminary findings were discussed in detail with the patient's care provider, Dr. Gray by Dr. Palomares via telephone at 10:40 PM on 03/27/2024 with readback comprehension and verification. Jamir Morfin MD have personally reviewed and interpreted this examination/study. > Interpreting Provider: Jamir Dale MD on 03/28/2024 8:54 AM Narrative 03/28/2024 8:54 AM FLORIST'S DECORATOR PROCEDURE: ??US PELVIS W TRANSVAG NON OB, [...] cul-de-sac. > Dictated by Reji Ventura MD (residential appraiser). Preliminary findings were discussed in detail with the patient's care provider, Dr. Gray by Dr. Palomares via telephone at 10:40 PM on 03/27/2024 with readback comprehension and verification. IJamir MD have personally reviewed and interpreted this examination/study. > Interpreting Provider: Jamir Dale MD on 03/28/2024 8:54 AM Jonathan Bush MD US ORDERABLES * CT Abdomen Pelvis W Contrast (03/27/2024 4:18 PM FLORIST'S DECORATOR) Anatomical Region Laterality Modality Abdomen, Pelvis Computed Tomogra phy 03/27/2024 4:25 PM FLORIST'S DECORATOR Impressions 03/27/2024 10:34 PM FLORIST'S DECORATOR IMPRESSION: 1.Complex multiloculated and large cysts in the right adnexa measuring 5.1 x 4.5 cm. This can be further evaluated with ultrasound if clinically indicated. 2.A 3.3 x 1.5 cm cyst in the left adnexa, within physiologic limits. 3.Appendix is not visualized. 4.4 mm nonobstructing stone in the upper pole of the left kidney. > Dictated by Adrienne Zuñiga MD (Wharf Operator)2 I, Batool Mesa MD have personally reviewed and interpreted this examination/study. > Interpreting Provider: Batool Mesa MD on 03/27/2024 10:34 PM Narrative 03/27/2024 10:34 PM FLORIST'S DECORATOR PROCEDURE: ??CT ABDOMEN PELVIS W CONTRAST, DATE/TIME OF EXAM: ??03/27/2024 4:19 PM, LOCATION ??[facility] INDICATION: R10.31: Abdominal pain, [...] DATE/TIME OF EXAM: 03/27/2024 4:19 PM, LOCATION [facility] INDICATION: R10.31: Abdominal pain, [...] kidney. > Dictated by Adrienne Zuñiga MD (Wharf Operator)2 I, Batool Mesa MD have personally reviewed and interpreted this examination/study. > Interpreting Provider: Batool Meas MD on 03/27/2024 10:34 PM [address] MD [address] ORDERABLES * LACTIC ACID BLOOD (03/27/2024 3:38 PM FLORIST'S DECORATOR) Lactic Acid-Stat 1.0 <=2.0 mmol/L 03/27/2024 4:10 PM FLORIST'S DECORATOR [facility] Blood BLOOD SPECIMEN / Unknown Venipuncture / Unknown 03/27/2024 3:38 PM FLORIST'S DECORATOR 03/27/2024 3:45 PM FLORIST'S DECORATOR Jonathan Bush MD LAB - CHEMISTRY ORD ERABLES Performing Organization Address [facility] Co de Phone Number [facility] [address] [place] [phone], [facility] [phone] * HCG BETA BLOOD QUANTITATIVE (03/27/2024 12:27 PM FLORIST'S DECORATOR) Only the most recent of2 resultswithin the time period is included. Beta-hCG Total Quantitative <3 mIU/mL 03/27/2024 1:45 PM FLORIST'S DECORATOR [facility] Comment: HCG Numeric Result Interpretation: ? [...] Unknown Venipuncture / Unknown 03/27/2024 12:27 PM FLORIST'S DECORATOR 03/27/2024 1:00 PM FLORIST'S DECORATOR Josette Wallis PA-C LAB - BLACKSMITH HELPER RY ORDERABLES Performing Organization Address [facility]/ZIP Co de Phone Number [facility] [address] [place] [phone], [place] [phone] * LIPASE BLOOD (03/27/2024 12:27 PM FLORIST'S DECORATOR) Lipase 24 8 - 78 U/L 03/27/2024 1:38 PM FLORIST'S DECORATOR [facility] Blood BLOOD SPECIMEN / Unknown Venipuncture / Unknown 03/27/2024 12:27 PM FLORIST'S DECORATOR 03/27/2024 1:00 PM FLORIST'S DECORATOR Narrative [facility] - 03/27/2024 1:38 PM FLORIST'S DECORATOR Lipase results from the Sosa Alinity analyzer may not be comparable with other methodologies. Josette Wallis PA-C LAB - BLACKSMITH HELPER RY ORDERABLES Performing Organization Address City/[facility]/ZIP Co de Phone Number [facility] [address] [place] [phone], [facility] [phone] * URINE MICROSCOPIC ONLY REFLEX TO CULTURE (03/27/2024 12:24 PM FLORIST'S DECORATOR) Reflex Status Culture to follow 03/27/2024 1:08 PM [facility] RBC UA 0-2 None Seen, 0-2, 3-5 /HPF 03/27/2024 1:08 PM [facility] WBC UA 0-5 None Seen, 0-5 /HPF 03/27/2024 1:08 PM [facility] Squamous Epithelial Cells UA 0-2 None Seen, 0-2, 3-5 /HPF 03/27/2024 1:08 PM [facility] Mucus UA 1+ /LPF 03/27/2024 1:08 PM [facility] Urine URINE SPECIMEN OBTAINED BY CLEAN CATCH PROCEDURE / Unknown Collection / Unknown 03/27/2024 12:24 PM FLORIST'S DECORATOR 03/27/2024 12:52 PM FLORIST'S DECORATOR [facility] - 03/27/2024 1:08 PM FLORIST'S DECORATOR Josette Wallis PA-C LAB - URINALY SIS ORDERABLES Performing Organization Address City/[facility]/ZIP Co de Phone Number [facility] [address] [place] [phone], [facility] [phone] * (ABNORMAL) URINALYSIS REFLEX MICROSCOPIC REFLEX CULTURE (03/27/2024 12:24 PM FLORIST'S DECORATOR) Color UA Yellow Straw, Yellow 03/27/2024 1:02 PM [facility] Clarity UA Cloudy(A) Clear 03/27/2024 1:02 PM [facility] Specific [place] UA 1.005 1.005 - 1.030 03/27/2024 1:02 PM [facility] pH UA 7.0 5.0 - 8.0 pH 03/27/2024 1:02 PM [facility] Protein UA Negative Negative 03/27/2024 1:02 PM [facility] Glucose UA Negative Negative 03/27/2024 1:02 PM [facility] Ketone UA Negative Negative 03/27/2024 1:02 PM [facility] Bilirubin UA Negative Negative 03/27/2024 1:02 PM [facility] Blood UA 1+(A) Negative 03/27/2024 1:02 PM [facility] Nitrite UA Negative Negative 03/27/2024 1:02 PM [facility] Leukocyte Esterase Trace(A) Negative 03/27/2024 1:02 PM [facility] Urobilinogen UA Negative Negative mg/dL 03/27/2024 1:02 PM [facility] Urine URINE SPECIMEN OBTAINED BY CLEAN CATCH PROCEDURE / Unknown Collection / Unknown 03/27/2024 12:24 PM FLORIST'S DECORATOR 03/27/2024 12:52 PM FLORIST'S DECORATOR Narrative [facility] - 03/27/2024 1:02 PM FLORIST'S DECORATOR Josette Wallis PA-C LAB - URINALY SIS ORDERABLES [facility] [address] [place] [address], [place] [phone] * CULTURE URINE (03/27/2024 12:24 PM FLORIST'S DECORATOR) Culture Urine 50,000-100,000 CFU/mL urogenital papa 03/29/2024 11:49 AM FLORIST'S DECORATOR [facility] Urine URINE SPECIMEN OBTAINED BY CLEAN CATCH PROCEDURE / Unknown Collection / Unknown 03/27/2024 12:24 PM FLORIST'S DECORATOR 03/27/2024 1:08 PM FLORIST'S DECORATOR oJsette Wallis PA-C LAB - MICROBI OLOGY ORDERABLES [facility] [address] [place] [address], [facility] [phone] * MAGNESIUM BLOOD (02/19/2024 3:40 PM FLORIST'S DECORATOR) Only the most recent of2 resultswithin the time period is included. Magnesium 2.1 1.6 - 2.6 mg/dL 02/19/2024 4:26 PM [facility] Blood BLOOD SPECIMEN / Unknown Venipuncture / Unknown 02/19/2024 3:40 PM FLORIST'S DECORATOR 02/19/2024 4:00 PM FLORIST'S DECORATOR Radha Mohan [facility] DENTURE-ELECTRON MICROSCOPIST LAB - [employer] HELPER RY ORDERABLES [facility] [address] [place] [id number], [facility] [phone] * (ABNORMAL) URINALYSIS W/MICROSCOPIC REFLEX TO CULTURE (02/19/2024 12:22 PM FLORIST'S DECORATOR) Color UA Straw Straw, Yellow 02/19/2024 12:37 PM [facility] Clarity UA Clear Clear 02/19/2024 12:37 PM [facility] Specific [place] UA 1.004(L) 1.005 - 1.030 02/19/2024 12:37 PM [facility] pH UA 7.0 5.0 - 8.0 pH 02/19/2024 12:37 PM [facility] Protein UA Negative Negative 02/19/2024 12:37 PM [facility] Glucose UA Negative Negative 02/19/2024 12:37 PM [facility] Ketone UA Negative Negative 02/19/2024 12:37 PM [facility] Bilirubin UA Negative Negative 02/19/2024 12:37 PM [facility] Blood UA Negative Negative 02/19/2024 12:37 PM [facility] Nitrite UA Negative Negative 02/19/2024 12:37 PM [facility] Leukocyte Esterase Negative Negative 02/19/2024 12:37 PM [facility] Urobilinogen UA Negative Negative mg/dL 02/19/2024 12:37 PM [facility] RBC UA 0-2 None Seen, 0-2, 3-5 /HPF 02/19/2024 12:37 PM [facility] WBC UA 0-5 None Seen, 0-5 /HPF 02/19/2024 12:37 PM FLORIST'S DECORATOR [facility] Bacteria UA Trace(A) None /HPF 02/19/2024 12:37 PM FLORIST'S DECORATOR [facility] Squamous Epithelial Cells UA 0-2 None Seen, 0-2, 3-5 /HPF 02/19/2024 12:37 PM [facility] Urine URINE SPECIMEN OBTAINED BY CLEAN CATCH PROCEDURE / Unknown Collection / Unknown 02/19/2024 12:22 PM FLORIST'S DECORATOR 02/19/2024 12:28 PM FLORIST'S DECORATOR Narrative [facility] - 02/19/2024 12:37 PM FLORIST'S DECORATOR Culture Not Indicated Radha MOON LAB - URINALY SIS ORDERABLES [facility] [address] [place] [address], [facility] [phone] * LACTIC ACID BLOOD REFLEX TO REPEAT (02/19/2024 12:19 PM FLORIST'S DECORATOR) Lactic Acid-Stat 1.7 <=2.0 mmol/L 02/19/2024 1:02 PM FLORIST'S DECORATOR [facility] Blood BLOOD SPECIMEN / Unknown Venipuncture / Unknown 02/19/2024 12:19 PM FLORIST'S DECORATOR 02/19/2024 12:31 PM FLORIST'S DECORATOR Radha [facility] LAB - BLACKSMITH HELPER RY ORDERABLES [facility] [address] [place] [address], [place] [phone] * PATHOLOGY TISSUE (01/12/2024 8:15 AM CDT) Case Report Surgical Pathology Report ? Case: [id number] ? Authorizing Provider: ??Sydnee Collins MD ?Collected: ? 01/12/2024 08:15 AM ? Ordering Location: ? [facility] ENDOSCOPY ?Received: ?01/12/2024 09:45 AM ? Pathologist: ? Love Moore MD ? Specimens: ?? A) - Gastric, gastric antrum biopsy ? B) - Gastric, gastric body biopsy ? 01/13/2024 8:10 AM [facility] PATHOLOGY LAB Final Diagnosis Stomach, antrum, biopsy (A): - Mild reactive changes - No active inflammation or H. pylori organisms (H&E examination) Stomach, body, biopsy (B): - No histopathologic abnormality - No active inflammation or H. pylori organisms (H&E examination) 01/13/2024 8:10 AM [facility] PATHOLOGY LAB Microscopic Description and Comment Microscopic examination substantiates the final diagnosis. 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 Operative procedure/findings: Upper EUS/EGD - no pancreatic masses; erythematous and granular mucosa in the antrum, biopsied; 01/13/2024 8:10 AM [facility] PATHOLOGY LAB Gross Description The [...] cassette B1. MB 01/13/2024 8:[address] [facility] PATH[facility] Pathologist Location at [facility] 01/13/2024 8:[address] [facility] Disclaimer The performance characteristics of all immunohistochemical and indirect immunofluorescence stains (if any) cited in this report were determined by the Histopathology Laboratory of [facility]. Some of these tests were developed [...] attending (teaching) pathologist. 01/13/2024 8:[address] [facility] Embedded Images 01/13/2024 8:[address] [facility] Biopsy, NOS GASTRIC CONTENTS SPECIMEN / Unknown 01/12/2024 8:15 AM CDT 01/12/2024 9:45 AM CDT Biopsy, NOS GASTRIC CONTENTS SPECIMEN / Unknown 01/12/2024 8:20 AM CDT 01/12/2024 9:45 AM CDT Sydnee Collins MD LAB - PATHOLOGY/CYTO LOGY ORDERABLES [facility] PATHOLOG[facility] LAB [address] [place] [address], [facility] [phone] * ENDOSCOPIC ULTRASONOGRAPHY, GI (01/12/2024 7:43 AM CDT) Report Endoscopy POC Endoscopy Department Report _ Patient Name: Guillermina Kendall ?Procedure Date: 01/12/2024 7:43 AM ?Date of : 2005 Classification: Outpatient ?Gender: Female Ethnicity: Not or ? Race: White _ Providers: ?Sydnee Collins MD, Chi Sinclair, ? (Fellow) Referring : ? 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 Throughout the ?procedure, the patient's blood pressure, pulse, and ?oxygen saturations were monitored continuously. The ?[id number] was introduced through the mouth, and ?advanced [...] Procedure Code(s): ? --- Professional --- ? 09574, Esophagogastroduod enoscopy, flexible, transoral; with endoscopic ? ultrasound examination, including the esophagus, stomach, and either the ? duodenum or a surgically altered stomach where the jejunum is examined ? distal to the anastomosis ? 30012, Esophagogastroduod enoscopy, flexible, transoral; with biopsy, ? single or multiple Diagnosis Code(s): ?--- Professional --- ?K31.89, Other diseases of stomach and duodenum ?K86.9, Disease of pancreas, unspecified CPT copyright 2021 [employer]. All rights reserved. The codes documented in this report are preliminary and upon hims coder review may be revised to meet current compliance requirements. Sydnee Collins MD 01/12/2024 10:13:21 AM This report has been signed electronically. Note Initiated On: 01/12/2024 7:43 AM Number of Addenda: 0 ? [facility] ? [address] [place] [phone] [place] [address] 01/12/2024 7:43 AM CDT Sydnee Collins MD GI PROCEDURE ORDERAB LES Performing Organization Address [facility] Co de Phone Number [facility] * HCG URINE QUALITATIVE - POCT (IP) INTERFACED (01/12/2024 7:16 AM CDT) HCG Qual Urine Negative Negative 01/12/2024 7:23 AM CDT [facility] Urine URINE / Unknown 01/12/2024 7 :16 AM CDT 01/12/2024 7:23 AM CDT Sydnee Collins MD LAB - POINT OF CARE ORDERABLES Performing Organization Address [facility]/ZIP Co de Phone Number [address] [address], [facility] [phone] * HCG URINE QUAL POCT NOTIFICATION (01/12/2024 7:10 AM CDT) Comment Notification Label Only - See Separate Report 01/12/2024 8:30 AM [facility] Urine URINE / Unknown 01/12/2024 7 :10 AM CDT 01/12/2024 7:10 AM CDT Sydnee Collins MD LAB - URINALYSIS ORD ERABLES [facility] [address] [place] [address], [facility] [phone] * (ABNORMAL) BASIC METABOLIC PANEL (CALCIUM TOTAL) (11/23/2023 7:53 AM CDT) Only the most recent of2 resultswithin the time period is included. BUN 9 7 - 26 mg/dL 11/23/2023 8:32 AM [facility] Creatinine 0.52(L) 0.56 - 0.96 mg/dL 11/23/2023 8:32 AM [facility] Sodium 138 136 - 145 mmol/L 11/23/2023 8:32 AM [facility] Potassium 4.3 3.5 - 4.5 mmol/L 11/23/2023 8:32 AM [facility] Chloride 111(H) 98 - 107 mmol/L 11/23/2023 8:32 AM [facility] CO2 23 22 - 29 mmol/L 11/23/2023 8:32 AM [facility] Glucose 50(LL) 70 - 115 mg/dL 11/23/2023 8:32 AM [facility] Calcium 9.4 8.4 - 10.2 mg/dL 11/23/2023 8:32 AM [facility] Anion Gap 4(L) 6 - 16 11/23/2023 8:32 AM [facility] BUN/Creatinine Ratio 17 7 - 23 11/23/2023 8:32 AM [facility] Osmolality Calculated 282 275 - 295 mOsm/kg 11/23/2023 8:32 AM [facility] eGFR by CKD-EPI >90 >=90 mL/min/1.7 3 m2 11/23/2023 8:32 AM CDT [facility] Blood BLOOD SPECIMEN / Unknown Venipuncture / Unknown 11/23/2023 7:53 AM CDT 11/23/2023 8:02 AM CDT Ervin Herrera MD LAB - CHEMISTR Y ORDERABLES Performing Organization Address [facility] Co de Phone Number [facility] [address] [place] [address], [facility] [phone] * CORTISOL BLOOD LC/MS/MS (11/23/2023 3:09 AM CDT) [facility] Cortisol 28.9 ug/dL 12/01/2023 5:26 PM CDT [facility] ([facility]) Comment: INTERPRETIVE INFORMATION: Cortisol by LC-MS/MS, ?Serum or Plasma Adult, Male and Female, Reference Ranges for Cortisol, Serum, ug/dL AM..................... 4.6-20.6 PM..................... 1.8-13.6 Stimulation 30-60 Minutes Post 0.25 mg Cosyntropin IV ....................... Greater than 20.0 Pediatric Reference Ranges for Cortisol, Serum, ug/dL - AM 1-12 months............ 4.6-23.0 1-5 years.............. 6.0-25.0 6-17 years............. 4.6-15.0 Stimulation 30-60 Minutes Post 0.25 mg Cosyntropin IV 1-12 months............ 32.0-60.0 1-5 years.............. 22.0-40.0 6-17 years............. 17.0-28.0 This test was developed and its performance characteristics determined by [employer]. It has not been cleared or approved by the US Food and Drug Administration. This test was performed in a CLIA certified laboratory and is intended for clinical purposes. Performed By: [facility] [address] [place] [address] Pet Trainer: Robert Cruz MD, PhD CLIA Number: [id number] Blood BLOOD SPECIMEN / Unknown Venipuncture / Unknown 11/23/2023 3:09 AM CDT 11/23/2023 3:13 AM CDT Ervin Herrera MD LAB - CHEMISTR Y ORDERABLES Performing Organization Address City/[facility]/ZIP Co de Phone Number [facility]) [address] [place] [address] * INSULIN LIKE GROWTH FACTOR 2 (11/23/2023 3:09 AM CDT) Pathologist [facility] INSULIN-LIKE GROWTH FACTOR (IGF-2) 285 ng/mL 11/25/2023 3:42 PM CDT [facility] ([facility]) Comment: INTERPRETIVE INFORMATION: Insulin-Like Growth Factor 2 Prepubertal (0-11 years old): 127 to 473 ng/mL Postpubertal (12 years and older): 180 to 580 ng/mL This test was developed and its performance characteristics determined by [employer]. It has not been cleared or approved by the US Food and Drug Administration. This test was performed in a CLIA certified laboratory and is intended for clinical purposes. Performed By: [facility] [address] [place] [address] Pet Trainer: Robert Cruz MD, PhD CLIA Number: [id number] Blood BLOOD SPECIMEN / Unknown Venipuncture / Unknown 11/23/2023 3:09 AM CDT 11/23/2023 3:13 AM CDT Ervin Herrera MD LAB - CHEMISTR Y ORDERABLES Performing Organization Address City/[facility]/ZIP Co de Phone Number [facility] ([facility]) [address] [place] [address], [facility] * INSULIN FREE + TOTAL (11/23/2023 3:09 AM CDT) [facility] Insulin Free 7 3 - 25 uIU/mL 11/25/2023 12:03 PM CDT [facility] ([facility]) Insulin 7 3 - 25 uIU/mL 11/25/2023 12:03 PM CDT [facility] ([facility]) Comment: INTERPRETIVE INFORMATION: Insulin, Free and Total This test reacts on a nearly equimolar basis with the analogs insulin aspart, insulin glargine, and insulin lispro. ??Insulin detemir exhibits approximately 50 percent cross-reactivity. ??Test reactivity with insulin glulisine is negligible (<3 percent). To convert to pmol/L, multiply uIU/mL by 6.0. Reference intervals established for fasting specimens. Performed By: [facility] [address] [place] [address] Pet Trainer: Robert Cruz MD, PhD CLIA Number: [id number] Blood BLOOD SPECIMEN / Unknown Venipuncture / Unknown 11/23/2023 3:09 AM CDT 11/23/2023 3:13 AM CDT Ervin Herrera MD LAB - CHEMISTR Y ORDERABLES [facility] ([facility]) [address] * C-PEPTIDE (11/23/2023 3:09 AM CDT) [facility] C-Peptide 0.9 0.5 - 3.3 ng/mL 11/24/2023 9:41 PM CDT [facility] ([facility]) Comment: INTERPRETIVE INFORMATION: Serum, C-Peptide Reference Interval applies to fasting specimens. To convert to nmol/L, multiply by 0.33 Performed By: [facility] [address] [place] [address] Pet Trainer: Robert Cruz MD, PhD CLIA Number: [id number] Blood BLOOD SPECIMEN / Unknown Venipuncture / Unknown 11/23/2023 3:09 AM CDT 11/23/2023 3:13 AM CDT Narrative Authorizing Provider Result Megan Herrera MD LAB - CHEMISTR Y ORDERABLES Performing Organization Address [facility]/ZIP Co de Phone Number [facility]) [address] [place] [address] * PROINSULIN (11/23/2023 3:09 AM CDT) Proinsulin <2.0 <=7.2 pmol/L 11/25/2023 4:28 PM CDT [facility] ([facility]) Comment: Performed By: [employer] [address] [place] [address] Pet Trainer: Robert Cruz MD, PhD CLIA Number: [id number] Blood BLOOD SPECIMEN / Unknown Venipuncture / Unknown 11/23/2023 3:09 AM CDT 11/23/2023 3:13 AM CDT Narrative Authorizing Provider Result Megan Herrera MD LAB - CHEMISTR Y ORDERABLES Performing Organization Address [facility] Co de Phone Number [facility]) [address] [place] [address] * (ABNORMAL) HYDROXYBUTYRATE BETA (11/23/2023 3:09 AM CDT) Beta-Hydroxybu tyrate 3.91(H) <0.50 mmol/L 11/23/2023 3:48 AM CDT [facility] Blood BLOOD SPECIMEN / Unknown Venipuncture / Unknown 11/23/2023 3:09 AM CDT 11/23/2023 3:16 AM CDT Narrative Authorizing Provider Result Megan Herrera MD LAB - CHEMISTR Y ORDERABLES [facility] [address] [address], [facility] [phone] * SOMATOMEDIN C (IGF-1) (11/23/2023 3:09 AM CDT) Insulin-Like Growth Factor-1 214 108 - 384 ng/mL 11/25/2023 7:12 AM CDT [facility] ([facility]) Comment: ?? AGE ?FEMALE ? AGE ?FEMALE <1 year ?14 - 106 ? 11 ??years ?91 - 610 1 year ?23 - 136 ? 12 ??years ?? 110 - 656 2 years ?? 30 - 163 ? 13 ??years ?? 150 - 678 3 years ?? 34 - 192 ? 14 ??years ?? 174 - 656 4 years ?? 38 - 217 ? 15 ??years ?? 156 - 586 5 years ?? 46 - 243 ? 16 ??years ?? 140 - 517 6 years ?? 56 - 268 ? 17 ??years ?? 130 - 471 7 years ?? 64 - 288 ? 18 ??years ?? 117 - 430 8 years ?? 74 - 337 ? 19 ??years ?? 113 - 408 9 years ?? 81 - 405 ? 20 ??years ?? 108 - 384 10 years ?? 85 - 526 Blood BLOOD SPECIMEN / Unknown Venipuncture / Unknown 11/23/2023 3:09 AM CDT 11/23/2023 3:13 AM CDT Narrative [facility] ([facility]) - 11/25/2023 7:12 AM CDT Performed at: ??01 - [facility] [address] ??[id number] Commercial Lending Assistant: Veronika Carreon MD, Phone: ??[phone] Ervin Herrera MD LAB - CHEMISTR Y ORDERABLES [facility] ([facility]) [address] [place] [address] * (ABNORMAL) GLUCOSE (11/23/2023 3:09 AM CDT) Glucose 66(L) 70 - 115 mg/dL 11/23/2023 3:48 AM CDT [facility] Blood BLOOD SPECIMEN / Unknown Venipuncture / Unknown 11/23/2023 3:09 AM CDT 11/23/2023 3:16 AM CDT Ervin Herrera MD LAB - CHEMISTR Y ORDERABLES [facility] [address] [place] [address], [facility] [phone] * CT Pancreas Wwo Contrast (11/11/2023 11:46 AM CDT) Anatomical Region Laterality Modality Abdomen Computed Tomogra phy 11/11/2023 2:22 PM CDT Impressions 11/11/2023 2:52 PM CDT Impression: 1.No acute abnormality in the abdomen or pelvis. Specifically, there is no pancreatic mass. > Dictated by Mayito Hawkins MD, (residential appraiser). I, Isaías Mallory MD have personally reviewed and interpreted this examination/study. > Interpreting Provider: Isaías Mallory MD on 11/11/2023 2:52 PM Narrative 11/11/2023 2:52 PM CDT PROCEDURE: ??CT PANCREAS WWO CONTRAST, DATE/TIME OF EXAM: ??11/11/2023 11:47 AM, LOCATION ??[facility] INDICATION: D13.7: Insulinoma ADDITIONAL CLINICAL INFORMATION: Ordering Provider Reason For Exam: ??r/o insulinoma COMPARISON: None. TECHNIQUE: CT of the abdomen was performed prior to and following the uneventful administration of 100 mL of Isovue 370 intravenous contrast according to a pancreas protocol. Findings: Lower Chest: Normal. The liver is not enlarged with a volume of 965 mL . Liver: Normal. Gallbladder and Bile Ducts: Normal. Spleen: Normal. Pancreas Normal. Adrenals: Normal. Kidneys: Normal. Gastrointestinal: The stomach and visualized loops of large and small bowel are unremarkable. Normal appendix. Mesentery/Peritoneum/Retroperitoneum: No abdominal or retroperitoneal lymphadenopathy. Abdominal Vasculature: No vascular abnormality is present. Bones: Bone windows demonstrate no suspicious lytic or blastic lesions. The visible osseous structures are intact. Soft tissues: Normal. Procedure Note Isaías Mallory MD - 11/11/2023 PROCEDURE: CT PANCREAS WWO CONTRAST, DATE/TIME OF EXAM: 1:47 AM, LOCATION [facility] INDICATION: D13.7: Insulinoma ADDITIONAL CLINICAL INFORMATION: Ordering Provider Reason For Exam: r/o insulinoma COMPARISON: None. TECHNIQUE: CT of the abdomen was performed prior to and following the uneventful administration of 100 mL of Isovue 370 intravenous contrast according to a pancreas protocol. Findings: Lower Chest: Normal. The liver is not enlarged with a volume of 965 mL . Liver: Normal. Gallbladder and Bile Ducts: Normal. Spleen: Normal. Pancreas Normal. Adrenals: Normal. Kidneys: Normal. Gastrointestinal: The stomach and visualized loops of large and small bowel areunremarkable. Normal appendix. Mesentery/Peritoneum/Retroperitoneum: No abdominal or retroperitoneal lymphadenopathy. Abdominal Vasculature: No vascular abnormality is present. Bones: Bone windows demonstrate no suspicious lytic or blastic lesions. The visible osseous structures are intact. Soft tissues: Normal. Impression: 1.No acute abnormality in the abdomen or pelvis. Specifically, there isno pancreatic mass. > Dictated by Mayito Hawkins MD, (residential appraiser). I, Isaías Mallory MD have personally reviewed and interpreted this examination/study. > Interpreting Provider: Isaías Mallory MD on 11/11/2023 2:52 PM [address] MD CT ORDERABLES * CREATININE - POCT INTERFACED (11/11/2023 11:29 AM CDT) Creatinine POCT 0.76 0.30 - 1.30 mg/dL 11/11/2023 11:34 AM CDT [facility] eGFR >90 >=90 mL/min/1.7 3 m2 11/11/2023 11:34 AM CDT [facility] Blood BLOOD SPECIMEN / Unknown 11/11/2023 11:29 AM CDT 11/11/2023 11:34 AM CDT Ervin Herrera MD LAB - POINT OF CARE ORDERABLES [facility] [address] [place] [address], [facility] [phone] * EEG (04/15/2014 12:55 PM FLORIST'S DECORATOR) Narrative [facility] - 04/15/2014 12:55 PM FLORIST'S DECORATOR Shira Howell MD ? 04/15/2014 12:55 PM [facility] [address] [place] [address] CLINICAL NEUROPHYSIOLOGY NAME: Guillermina Kendall :2005 AD[address]ESS:[address] [address] [place] [address] [facility] #: [id number] DATE OF TEST:04/15/14 Requesting Physician :Jefry aMrtinez SORORITY MOTHER: Shira Howell MD MEDICAL HISTORY: 8 years old female with spells concerning for seizure where she had generalized shaking. MEDICATIONS: None EEG DESCRIPTION: A routine EEG with scalp electrodes was performed during clinical wakefulness and sleep using [employer] monitoring system to record EEG data digitally on this 8 ??y.o. 11 ??m.o. patient. The standard 10/20 electrode placement system was used. A variety of referential and bipolar montages were utilized to analyze the data. The duration of study was 42 minutes. The study began at 9.02 AM on 04/15/14 and ended at 9.44 AM on the same day. EEG FINDINGS: During awake state with eyes closed background activity included evidence of posterior dominant rhythm of 10 Hzs. No significant asymmetry of background activity occurred. During periods of drowsiness posterior dominant rhythm waxed and weaned and there were periods of slowing. ??During stage 2 sleep, symmetrical V-waves, K-complexes, and sleep spindles occurred. Hyperventilation was performed and did not show any epileptiform activity.Photic stimulation using stepwise progression of photic frequency did not elicit any epileptiform abnormality. There were no focal abnormalities, no interictal epileptiform abnormalities occurred. No clinical or electrographic seizures were seen. INTERPRETATION: This routine awake and sleep EEG is normal for patient's age. No pattern with specific correlation with seizure occurred. No focal abnormalities were present. Shira Howell MD 04/15/2014 12:51 PM Ale Tsai MD NEUROLOGY ORDERABLES Performing Organization Address City/[facility] Co de Phone Number [facility] * EKG 15-LEAD (04/15/2014 1:53 AM [facility]) Ventricular Rate 91 BPM CG MUSE Atrial Rate 91 BPM CG MUSE P-R Interval 132 ms CG MUSE QRS Duration ms 86 ms CG MUSE Q-T Interval ms 354 ms CG MUSE QTC Calculation (Bezet) 435 ms CG MUSE Calculated P [place]field 62 degrees CG MUSE Calculated R [place] 87 degrees CG MUSE Calculated T [place] 52 degrees CG MUSE Interpretation EKG * Pediatric ECG Analysis * Normal sinus rhythm Nonspecific ST abnormality in lead V1 No previous ECGs available Confirmed by JEREMIAH SUTHERLAND ([id number]) on 04/25/2014 8:08:26 AM CG MUSE 04/15/2014 1:53 AM [facility] 04/25/2014 8:08 AM [facility] Shasha Pope MD ECG ORDERABLES Performing Organization Address [facility] Co de Phone Number MUSE * URINALYSIS ROUTINE AUTO (04/14/2014 11:49 PM [facility]) Color UA Yellow Straw, Yellow, Dark Yellow 04/14/2014 11:[address] [facility] Clarity UA Slt Cloudy 04/14/2014 11:[address] [facility] Specific [place] UA 1.020 1.005 - 1.030 04/14/2014 11:[address] [facility] pH UA 7.5 5.0 - 8.0 pH 04/14/2014 11:[address] [facility] Protein UA Negative Negative 04/14/2014 11:[address] [facility] Blood UA Negative Negative 04/14/2014 11:[address] [facility] Leukocyte UA Negative Negative 04/14/2014 11:[address] [facility] Nitrite UA Negative Negative 04/14/2014 11:[address] [facility] Glucose UA Negative Negative 04/14/2014 11:[address] [facility] Ketone UA Negative Negative 04/14/2014 11:[address] [facility] Bilirubin UA Negative Negative 04/14/2014 11:[address] [facility] Urobilinogen UA 0.2 0.1 - 1.0 EU/dL 04/14/2014 11:[address] [facility] Urine URINE SPECIMEN OBTAINED BY CLEAN CATCH PROCEDURE / Unknown 04/14/2014 11:49 PM [facility] 04/14/2014 11:54 PM FLORIST'S DECORATOR Shasha Pope MD LAB - URINALYSI S ORDERABLES Performing Organization Address [facility] de Phone Number [facility] [place] [address] * (ABNORMAL) URINALYSIS MICROSCOPIC ONLY (04/14/2014 11:49 PM [facility]) RBC UA 0-2 0-2, 2-5 # /hpf 04/15/2014 12:[address] [facility] WBC UA 0-2 0-2, 2-5 # /hpf 04/15/2014 12:[address] [facility] Bacteria UA 1+(A) None Seen, Trace 04/15/2014 12:[address] [facility] Epithelial Cell UA 0-2 0-2, 2-5 04/15/2014 12:[address] [facility] Amorphous Phosphate Crystals 2+(A) None Seen 04/15/2014 12:[address] [facility] Urine URINE SPECIMEN OBTAINED BY CLEAN CATCH PROCEDURE / Unknown 04/14/2014 11:49 PM [facility] 04/14/2014 11:54 PM [employer] DECORATOR Shasha Pope MD LAB - URINALYSI S ORDERABLES Performing Organization Address [facility] Co de Phone Number [facility] [address] [place] [address] * DRUG ABUSE URINE PANEL (04/14/2014 11:49 PM [facility]) [facility] Amphetamines Screen Urine Not Detected Not Detected 04/15/2014 12:[address] [facility] Barbiturates Screen Urine Not Detected Not Detected 04/15/2014 12:[address] [facility] Benzodiazepines Screen Urine Not Detected Not Detected 04/15/2014 12:[address] [facility] Cannabinoids Screen Urine Not Detected Not Detected 04/15/2014 12:[address] [facility] Cocaine Screen Urine Not Detected Not Detected 04/15/2014 12:[address] [facility] Opiate Screen Urine Not Detected Not Detected 04/15/2014 12:[address] [facility] Phencyclidine Screen Urine Not Detected Not Detected 04/15/2014 12:[address] [facility] Urine URINE / Unknown 04/14/2014 1 1:49 PM [facility] 04/14/2014 11:57 PM [facility] Narrative [facility] - 04/15/2014 12:10 AM [facility] Medical urine drug screening is only a qualitative method. A Negative result does not prove the absence of a drug or a drug metabolite. The screening methods used are subject to cross-reactivity from other prescription and nonprescription drugs and should be interpreted carefully along with other pertinent clinical information. Drug Screening Test Cutoff Values: AMPHETAMINES ? 1000 ng/ml BARBITURATES ?200 ng/ml BENZODIAZEPINES ? 200 ng/ml CANNABINOIDS (THC) ?? 50 ng/ml COCAINE ? 300 ng/ml OPIATES ? 300 ng/ml PHENCYCLIDINE (PCP) ??25 ng/ml Shasha Pope MD LAB - URINE DON RAMONE ORDERABLES [facility] [address] [facility] [place] [address] * (ABNORMAL) DIFFERENTIAL MANUAL (04/14/2014 11:26 PM [facility]) [facility] WBC Auto 6.4 4.5 - 14.5 x10^9/L 04/14/2014 11:[address] [facility] Neutrophil % Manual 29 24 - 66 % 04/14/2014 11:[address] [facility] Lymphocytes % Manual 61 22 - 61 % 04/14/2014 11:[address] [facility] Monocytes % Manual 8 3 - 15 % 04/14/2014 11:[address] [facility] Eosinophils % Manual 2 0 - 10 % 04/14/2014 11:[address] [facility] Cells Counted 100 # cells 04/14/2014 11:[address] [facility] Platelet Estimation Adequate platelets Normal, Adequate platelets 04/14/2014 11:[address] [facility] WBC Morph Normal 04/14/2014 11:[address] [facility] Anisocytosis Occasional(A ) None 04/14/2014 11:[address] [facility] Poikilocytosis Occasional(A ) None 04/14/2014 11:[address] [facility] Blood BLOOD SPECIMEN / Unknown Lab Venipuncture / Unknown 04/14/2014 11:26 PM [employer] 04/14/2014 11:28 PM [employer] DECORATOR Shasha Pope MD LAB - HEMATOLOG Y ORDERABLES [facility] [address] [place] [id number] * PHOSPHORUS BLOOD (04/14/2014 11:26 PM [employer] DECOR[facility]) Phosphorus 4.57 3.59 - 6.16 mg/dL 04/14/2014 11:[address] [facility] Blood BLOOD SPECIMEN / Unknown Lab Venipuncture / Unknown 04/14/2014 11:26 PM [employer] DECORATOR 04/14/2014 11:35 PM FL[employer]IST[employer] DECORATOR Shasha Pope MD LAB - CHEMISTRY ORDERABLES Performing Organization Address City/[facility]/ZIP Co de Phone Number [facility] [address] [place] [id number] Care Teams Orthotic/Prosthetic Clinician Relationship Specialty Start Date End Date Provider, No Pcp PCP - General 03/27/24 Jefry Martinez MD [address] [facility] [place] [address] 03/27/24
[2024-04-12 08:32] LABS: Alanine Aminotransferase 18 U/L (6-35); Albumin Level 4.5 g/dL (3.5-5.1); Alkaline Phosphatase 63 U/L (38-126); Anion Gap 10 mmol/L (4-12); Aspartate Amino Transferase 25 U/L (14-36); Bilirubin,Total 0.3 mg/dL (0.2-1.3); Blood Urea Nitrogen 14 mg/dL (7-17); Calcium 9.2 mg/dL (8.4-10.2); Carbon Dioxide 28 mmol/L (22-30); Chloride 102 mmol/L (98-107); Estimated Glomerular Filt Rate > 60; Glucose 63 mg/dL (65-110); Potassium 3.6 mmol/L (3.4-5.0); Sodium 140 mmol/L (137-145)
[2024-04-12 09:14] LABS: Free T4 Free Thyroxine 0.93 ng/dL (0.78-2.19)
[2024-04-13 08:54] LABS: C-Peptide 3.52 ng/mL (0.80-3.85)
[2024-04-16 19:24] LABS: Glutamic acid decarboxylase AA <5 IU/mL (<5)
== END 2024-04-12 06:35 | disposition home or self-care (01) ==
LOC: ANHLAB 06:35
PROVIDERS: Visit Provider Internal Medicine
DX: E16.2 Hypoglycemia, unspecified (principal)
CPT/HCPCS: 36415; 80053; 82533; 84439; 84443; 84681; 86341; 96372; J0834